=== PATIENT | female | born 1965 | race Caucasian/White ===

== ENCOUNTER 2016-05-19 16:03 | Emergency (ER) | payer OTHER ==
[2016-05-19 16:37] VITALS: BP 120/63
== END 2016-05-19 18:33 | disposition left against medical advice (07) ==
LOC: ER 16:03
DX: Z53.9 Procedure and treatment not carried out, unspecified reason (principal); R50.9 Fever, unspecified

== ENCOUNTER 2016-05-20 10:10 | Emergency (ER) | payer OTHER ==
--- NOTE | 2016-05-20 10:36 | ER Document Report ---
ED Medical Screen (RME) - General Stated Complaint: COLD SYMPTOMS Time seen by provider: 10:34 Mode of Arrival: Ambulatory Information source: Patient Notes: 50 yo female presents to ed for cough short of breath, HX of copd Had URi TRAVEL OUTSIDE OF THE [place] IN LAST 30 DAYS: No - HPI Onset: Last week Onset/Duration: Gradual Quality of pain: Pressure Severity: None Pain Level: Denies Associated Symptoms: Cough (productive), Fever - yesterda, Shortness of breath, Sinus pain/drainage Exacerbated by: Coughing Similar symptoms previously: Yes Recently seen / treated by doctor: No - Related Data Smoking: Cigarettes, Less than 1 pack/day - 1/2 Frequency of alcohol use: None Drug Abuse: None Allergies/Adverse Reactions: No Known Drug Allergies Allergy (Unknown, Verified 05/19/16 16:33) Past Medical History - Past Medical History Cardiac Medical History: Reports: Hx Hypercholesterolemia, Hx Hypertension Denies: Hx Congestive Heart Failure, Hx Heart Attack Pulmonary Medical History: Denies: Hx Tuberculosis Neurological Medical History: Denies: Hx Seizures Endocrine Medical History: Reports: Hx Diabetes Mellitus Type 2 GI Medical History: Reports: Hx Gastroesophageal Reflux Disease, Hx Hiatal Hernia Psychiatric Medical History: Reports: Hx Depression Past Surgical History: Reports: Hx Tubal Ligation. Denies: Hx Pacemaker - Immunizations Hx Diphtheria, Pertussis, Tetanus Vaccination: Yes Physical Exam - Vital signs Vitals: Temp Pulse Resp BP Pulse Ox 98.0 F 73 20 111/62 100 05/20/16 10:30 05/20/16 10:30 05/20/16 10:30 05/20/16 10:30 05/20/16 10:30 Course - Vital Signs Vital signs: Temp Pulse Resp BP Pulse Ox 98.0 F 73 20 111/62 100 05/20/16 10:30 05/20/16 10:30 05/20/16 10:30 05/20/16 10:30 05/20/16 10:30
[2016-05-20] MEDS ORDERED: IPRATROPIUM/ALBUTEROL 0.5-2.5 MG/3 ML AMPUL NEB ONE (12:37)
[2016-05-20] MEDS ORDERED: PREDNISONE 20 MG TABLET PO ONE (12:37)
--- NOTE | 2016-05-20 12:40 | ER Document Report ---
ED General - General Chief Complaint: Cough Stated Complaint: COLD SYMPTOMS Mode of Arrival: Ambulatory TRAVEL OUTSIDE OF THE [place] IN LAST 30 DAYS: No - HPI Patient complains to provider of: cough congestion Notes: Patient with cough congestion last 2 days. Patient states recently diagnosed with COPD approximately one year ago. Patient states she has been using her nebulizer of albuterol at home. Patient denies any sick contacts states that she did receive a flu shot this year. No recent travel no fevers chills nausea vomiting diarrhea chest pain abdominal pain. Patient states she does continue to smoke. Productive cough with clear initially now green sputum - Related Data Allergies/Adverse Reactions: No Known Drug Allergies Allergy (Unknown, Verified 05/19/16 16:33) Past Medical History - General Information source: Patient - Social History Smoking Status: Current Some Day Smoker Chew tobacco use (# tins/day): No Frequency of alcohol use: None Drug Abuse: None Family History: Reviewed & Not Pertinent Patient has suicidal ideation: No Patient has homicidal ideation: No - Past Medical History Cardiac Medical History: Reports: Hx Hypercholesterolemia, Hx Hypertension Denies: Hx Congestive Heart Failure, Hx Heart Attack Pulmonary Medical History: Denies: Hx Tuberculosis Neurological Medical History: Denies: Hx Seizures Endocrine Medical History: Reports: Hx Diabetes Mellitus Type 2 GI Medical History: Reports: Hx Gastroesophageal Reflux Disease, Hx Hiatal Hernia Psychiatric Medical History: Reports: Hx Depression Past Surgical History: Reports: Hx Tubal Ligation. Denies: Hx Pacemaker - Immunizations Hx Diphtheria, Pertussis, Tetanus Vaccination: Yes Hx Pneumococcal Vaccination: 01/07/12 Review of Systems - Review of Systems Constitutional: No symptoms reported EENT: Other Cardiovascular: No symptoms reported Respiratory: Cough Gastrointestinal: No symptoms reported Genitourinary: No symptoms reported Female Genitourinary: No symptoms reported Musculoskeletal: No symptoms reported Skin: No symptoms reported Hematologic/Lymphatic: No symptoms reported Neurological/Psychological: No symptoms reported Physical Exam - Vital signs Vitals: Temp Pulse Resp BP Pulse Ox 98.0 F 73 20 111/62 100 05/20/16 10:30 05/20/16 10:30 05/20/16 10:30 05/20/16 10:30 05/20/16 10:30 Interpretation: Normal - General General appearance: Appears well, Alert - HEENT Head: Normocephalic, Atraumatic Eyes: Normal Pupils: PERRL - Respiratory Respiratory status: No respiratory distress Chest status: Nontender Breath sounds: Normal Chest palpation: Normal - Cardiovascular Rhythm: Regular Heart sounds: Normal auscultation Murmur: No - Abdominal Inspection: Normal Distension: No distension Bowel sounds: Normal Tenderness: Nontender Organomegaly: No organomegaly - Back Back: Normal, Nontender - Extremities General upper extremity: Normal inspection, Nontender, Normal color, Normal ROM , Normal temperature General lower extremity: Normal inspection, Nontender, Normal color, Normal ROM , Normal temperature, Normal weight bearing. No: Carolyn's sign - Neurological Neuro grossly intact: Yes Cognition: Normal Orientation: AAOx4 Delfin Coma Scale Eye Opening: Spontaneous [place] Coma Scale Verbal: Oriented Delfin Coma Scale Motor: Obeys Commands Delfin Coma Scale Total: 15 Speech: Normal Motor strength normal: LUE, RUE, LLE, RLE Sensory: Normal - Psychological Associated symptoms: Normal affect, Normal mood - Skin Skin Temperature: Warm Skin Moisture: Dry Skin Color: Normal Course - Re-evaluation Re-evalutation: 05/20/16 16:05 Patient's examination is more consistent with bronchitis. Patient will be given albuterol steroids for 3 days that she is diabetic and started on Z-Mann due to the sputum change. Patient was encouraged to stop smoking. Patient will be discharged home. - Vital Signs Vital signs: Temp Pulse Resp BP Pulse Ox 97.2 F 89 17 118/62 96 05/20/16 13:08 05/20/16 13:08 05/20/16 13:08 05/20/16 13:08 05/20/16 13:08 Discharge - Discharge Clinical Impression: Bronchitis, Tobacco abuse Condition: Good Disposition: HOME, SELF-CARE Instructions: Bronchitis ([facility]), Chronic Obstructive Lung Disease ([facility]) Additional Instructions: Stop smoking Your symptoms today are consistent with bronchitis. It is important that she take your inhaler or nebulizer at home 1 treatment or 2 puffs every 4 hours for the next 5 days. We will start you on steroids. I will give you a dose of antibiotics Zithromax. Please make sure that you follow-up with your primary care physician. Prescriptions: Azithromycin [Zithromax 250 mg Tablet] 250 mg PO ASDIR PRN #6 tablet PRN Reason: Prednisone [Deltasone 20 mg Tablet] 2 tab PO DAILY 2 Days Forms: Smoking Cessation Education, Return to Work
[2016-05-20] MEDS ORDERED: AZITHROMYCIN 250 MG TABLET PO ONE (12:41)
[2016-05-20 13:12] VITALS: BP 118/62
== END 2016-05-20 13:08 | disposition home or self-care (01) ==
LOC: ER 10:10
DX: J44.9 Chronic obstructive pulmonary disease, unspecified (principal); F17.210 Nicotine dependence, cigarettes, uncomplicated; R05 Cough; I10 Essential (primary) hypertension; E11.9 Type 2 diabetes mellitus without complications; Z79.899 Other long term (current) drug therapy
CPT/HCPCS: 94640; 99283; 87804; 71020; J7512; J7620

== ENCOUNTER 2016-06-24 09:49 | Emergency (ER) | payer OTHER ==
[2016-06-24] MEDS ORDERED: KETOROLAC TROMETHAMINE 60 MG/2 ML SDV IM ONE (10:31)
--- NOTE | 2016-06-24 10:37 | ER Document Report ---
ED Respiratory Problem - General Chief Complaint: Congestion Stated Complaint: CONGESTION Mode of Arrival: Ambulatory Information source: Patient TRAVEL OUTSIDE OF THE [place] IN LAST 30 DAYS: No - HPI Patient complains to provider of: Cough, Hurts to breath Onset: Other - 3 days Quality of pain: Achy Severity: Mild Context: Hx COPD, Smoker. denies: DVT, Factor V Leiden, Malignancy, , Recent cardiac event, Recent foreign travel, Recent long distance trvl, Recent immobilization, Recent surgery Chest pain/discomfort: Worse with deep breaths Cough: Nonproductive. denies: Stridor Sputum amount: None Recently seen / treated by doctor: Yes - here 3 weeks ago Notes: Patient arrives with complaints of cough and chest pain with cough and deep breaths. Patient states that she was seen 3 weeks ago in the emergency department and was diagnosed with bronchitis, she was placed on antibiotics as well as steroids. She states that she felt better. On Tuesday she started to have a cough and pain in her chest and upper back with cough only. She denies any difficulty breathing. She denies any diaphoresis. She denies any leg pain or swelling. She denies any recent trips or surgeries, hormones, history of DVT or PE, cancer. She denies a history of CAD. She does have a history of COPD and continues to smoke. She denies any shortness of breath at this time. She states that yesterday she felt hot but did not actually take her temperature. - Related Data Allergies/Adverse Reactions: No Known Drug Allergies Allergy (Unknown, Verified 06/24/16 10:00) Past Medical History - General Information source: Patient - Social History Smoking Status: Never Smoker Chew tobacco use (# tins/day): No Frequency of alcohol use: None Drug Abuse: None Family History: Reviewed & Not Pertinent Patient has suicidal ideation: No Patient has homicidal ideation: No - Past Medical History Cardiac Medical History: Reports: Hx Hypercholesterolemia, Hx Hypertension Denies: Hx Congestive Heart Failure, Hx Heart Attack Pulmonary Medical History: Denies: Hx Tuberculosis Neurological Medical History: Denies: Hx Seizures Endocrine Medical History: Reports: Hx Diabetes Mellitus Type 2 Renal/ Medical History: Denies: Hx Peritoneal Dialysis GI Medical History: Reports: Hx Gastroesophageal Reflux Disease, Hx Hiatal Hernia Psychiatric Medical History: Reports: Hx Depression Past Surgical History: Reports: Hx Tubal Ligation. Denies: Hx Pacemaker - Immunizations Hx Diphtheria, Pertussis, Tetanus Vaccination: Yes Hx Pneumococcal Vaccination: 01/07/12 Review of Systems - Review of Systems -: Yes All other systems reviewed and negative Physical Exam - Vital signs Interpretation: Normal - General General appearance: Appears well, Alert In distress: None - HEENT Head: Normocephalic, Atraumatic Eyes: Normal Conjunctiva: Normal Pupils: PERRL Ears: Normal External canal: Normal Tympanic membrane: Normal Nasal: Normal Mouth/Lips: Normal Pharynx: Normal. No: Erythema, Exudate, Peritonsillar abscess Neck: Normal - Respiratory Respiratory status: No respiratory distress Chest status: Nontender Breath sounds: Normal. No: Rhonchi, Stridor, Wheezing Chest palpation: Normal - Cardiovascular Rhythm: Regular Heart sounds: Normal auscultation Murmur: No - Back Back: Normal, Nontender - Extremities General upper extremity: Normal inspection, Nontender, Normal color, Normal ROM , Normal temperature General lower extremity: Normal inspection, Nontender, Normal color, Normal ROM , Normal temperature, Normal weight bearing. No: Edema, Carolyn's sign - Neurological Neuro grossly intact: Yes Cognition: Normal Orientation: AAOx4 Delfin Coma Scale Eye Opening: Spontaneous Delfin Coma Scale Verbal: Oriented Delfin Coma Scale Motor: Obeys Commands Delfin Coma Scale Total: 15 Speech: Normal Motor strength normal: LUE, RUE, LLE, RLE Sensory: Normal - Psychological Associated symptoms: Normal affect, Normal mood - Skin Skin Temperature: Warm Skin Moisture: Dry Skin Color: Normal Course - Re-evaluation Re-evalutation: 06/24/16 11:28 The patient is nontoxic appearing with stable vitals. Patient had bronchitis 3 weeks ago and now has some chest pain and upper back pain with coughing and deep breath only. EKG is unremarkable her attending review. Chest x-ray clear. Patient has no PE risk factors. PE is very unlikely in this patient at this time. Patient likely has some pleurisy from her recent respiratory illness. I will discharge the patient home on NSAIDs. Follow up with her primary care doctor if not better in 4-5 days, sooner if getting worse. - Diagnostic Test Radiology reviewed: Reports reviewed - Negative chest - EKG Interpretation by Me EKG shows normal: Sinus rhythm, Intervals, QRS Complexes, ST-T Waves Rhythm: NSR When compared to previous EKG there are: No significant change Discharge - Discharge Clinical Impression: Cough, Chest pain made worse by breathing Condition: Stable Disposition: HOME, SELF-CARE Instructions: Pleurisy ([facility]), Stop Smoking ([facility]) Additional Instructions: Take medications as prescribed. Follow-up with your doctor in the next 4-5 days for recheck. Follow-up sooner for increased pain, fever, difficulty breathing, or any further concerns. Prescriptions: Diclofenac Sodium [Voltaren] 75 mg PO BID #20 tablet.dr Forms: Smoking Cessation Education, Return to Work
[2016-06-24 11:48] VITALS: BP 113/60
--- NOTE | 2016-06-24 13:19 | EKG REPORT ---
SEVERITY:- BORDERLINE ECG - SINUS RHYTHM LOW VOLTAGE IN FRONTAL LEADS BORDERLINE R WAVE PROGRESSION, ANTERIOR LEADS : Confirmed by: Bucky Solorio MD 24-Jun-2016 13:18:40
== END 2016-06-24 11:48 | disposition home or self-care (01) ==
LOC: ER 09:49
DX: R05 Cough (principal); R07.81 Pleurodynia; R06.02 Shortness of breath; J44.9 Chronic obstructive pulmonary disease, unspecified; F17.200 Nicotine dependence, unspecified, uncomplicated; E78.00 Pure hypercholesterolemia, unspecified; I10 Essential (primary) hypertension; K21.9 Gastro-esophageal reflux disease without esophagitis; E11.9 Type 2 diabetes mellitus without complications; Z98.51 Tubal ligation status
CPT/HCPCS: 93005; 99284; 96372; 71020; 93010; J1885

== ENCOUNTER 2016-12-04 16:28 | Emergency (ER) | payer OTHER ==
--- NOTE | 2016-12-04 17:16 | ER Document Report ---
ED Medical Screen (RME) - General Chief Complaint: Chest Pain Stated Complaint: CHEST PAIN Time Seen by Provider: 12/04/16 17:16 Mode of Arrival: Ambulatory Information source: Patient TRAVEL OUTSIDE OF THE [place] IN LAST 30 DAYS: No - HPI Onset: Last week Onset/Duration: Gradual, Waxing and waning Quality of pain: Fullness - "LIKE I SWALLOWED A GOLF BALL", Pressure Severity: Moderate Associated Symptoms: None, Shortness of breath - CHRONIC, NOT UNUSUAL Exacerbated by: Coughing, Deep breathing Relieved by: Other - HOLDING BREATH Similar symptoms previously: No Recently seen / treated by doctor: No - Related Data Smoking: Greater than 1 pack/day Frequency of alcohol use: Rare Drug Abuse: None Allergies/Adverse Reactions: No Known Drug Allergies Allergy (Unknown, Verified 06/24/16 10:00) Past Medical History - Social History Cigarette use (# per day): Yes Chew tobacco use (# tins/day): No Frequency of alcohol use: None Drug Abuse: None Lives with: Alone Family history: None - Past Medical History Cardiac Medical History: Reports: Hx Hypercholesterolemia, Hx Hypertension Denies: Hx Congestive Heart Failure, Hx Heart Attack Pulmonary Medical History: Reports: Hx COPD Denies: Hx Tuberculosis Neurological Medical History: Denies: Hx Seizures Endocrine Medical History: Reports: Hx Diabetes Mellitus Type 2 Renal/ Medical History: Denies: Hx Peritoneal Dialysis GI Medical History: Reports: Hx Gastroesophageal Reflux Disease, Hx Hiatal Hernia Psychiatric Medical History: Reports: Hx Depression Past Surgical History: Reports: Hx Tubal Ligation. Denies: Hx Pacemaker - Immunizations Hx Diphtheria, Pertussis, Tetanus Vaccination: Yes Review of Systems - Review of Systems Constitutional: Other - COLD INTOLERANCE. denies: Chills, Fever EENT: No symptoms reported Cardiovascular: No symptoms reported Respiratory: See HPI Gastrointestinal: No symptoms reported. denies: Diarrhea, Nausea, Vomiting Genitourinary: No symptoms reported Female Genitourinary: No symptoms reported Musculoskeletal: No symptoms reported Skin: No symptoms reported Hematologic/Lymphatic: No symptoms reported Neurological/Psychological: No symptoms reported Physical Exam - Vital signs Vitals: Temp Pulse Resp BP Pulse Ox 98.3 F 79 16 109/65 98 12/04/16 16:45 12/04/16 16:45 12/04/16 16:45 12/04/16 16:45 12/04/16 16:45 Interpretation: Normal - General General appearance: Appears well, Alert In distress: None - HEENT Head: Normocephalic Eyes: Normal Conjunctiva: Normal Ears: Normal Nasal: Normal Mouth/Lips: Normal Mucous membranes: Normal - Respiratory Respiratory status: No respiratory distress Chest status: Nontender Breath sounds: Normal - Cardiovascular Rhythm: Regular Heart sounds: Normal auscultation Murmur: No - Abdominal Inspection: Normal Distension: No distension Bowel sounds: Normal - Extremities General upper extremity: Normal inspection General lower extremity: Normal inspection - Neurological Neuro grossly intact: Yes Cognition: Normal Orientation: AAOx4 - Psychological Associated symptoms: Normal affect, Normal mood - Skin Skin Temperature: Warm Skin Moisture: Dry Skin Color: Normal Skin Turgor: Elastic Course - Vital Signs Vital signs: Temp Pulse Resp BP Pulse Ox 98.3 F 79 16 109/65 98 12/04/16 16:45 12/04/16 16:45 12/04/16 16:45 12/04/16 16:45 12/04/16 16:45
[2016-12-04 17:56] LABS: ABSOLUTE BASOPHILS # (AUTO) 0.1 10^3/uL (0.0-0.2); ABSOLUTE EOSINOPHILS # (AUTO) 0.2 10^3/uL (0.0-0.6); ABSOLUTE LYMPHOCYTES (AUTO) 2.5 10^3/uL (0.5-4.7); ABSOLUTE MONOCYTES (AUTO) 0.5 10^3/uL (0.1-1.4); ABSOLUTE NEUT (AUTO) 4.7 10^3/uL (1.7-8.2); BASOPHILS % (AUTO) 0.8 % (0-2); EOSINOPHILS % (AUTO) 2.5 % (0-6); HEMATOCRIT 41.7 % (36.0-47.0); HEMOGLOBIN 14.6 g/dL (12.0-15.5); HGB HCT DIFFERENCE 2.1; LYMPHOCYTES % (AUTO) 31.5 % (13-45); MEAN CORPUSCULAR HEMOGLOBIN 35.7 pg (27.0-33.4); MEAN CORPUSCULAR HGB CONC 35.1 g/dL (32.0-36.0); MEAN CORPUSCULAR VOLUME 102 fl (80-97); MONOCYTES % (AUTO) 6.6 % (3-13); RED BLOOD COUNT 4.09 10^6/uL (3.72-5.28); RED CELL DISTRIBUTION WIDTH 15.1 % (11.5-14.0); SEGMENTED NEUTROPHILS % (AUTO) 58.6 % (42-78)
--- NOTE | 2016-12-04 18:08 | RADIOLOGY REPORT (SQ) ---
EXAM DESCRIPTION: CHEST PA/LAT COMPLETED DATE/TIME: 12/04/2016 5:53 pm REASON FOR STUDY: CHEST PAIN COMPARISON: 06/24/2016 and 04/12/2014 EXAM PARAMETERS: NUMBER OF VIEWS: two views TECHNIQUE: Digital Frontal and Lateral radiographic views of the chest acquired. RADIATION DOSE: NA LIMITATIONS: none FINDINGS: LUNGS AND PLEURA: An ovoid hyperdensity localizing to the right middle lobe appears stabl e, and likely represents a calcified granuloma. No new focal opacities, masses or pneumothorax. No p leural effusion. MEDIASTINUM AND HILAR STRUCTURES: No masses or contour abnormalities. HEART AND VASCULAR STRUCTURES: Heart normal size. No evidence for failure. BONES: No acute findings. HARDWARE: None in the chest. OTHER: No other significant finding. IMPRESSION: NO SIGNIFICANT RADIOGRAPHIC FINDING IN THE CHEST. TECHNICAL DOCUMENTATION: JOB ID: [id number] [email or web address]- All Rights Reserved
[2016-12-04 18:13] LABS: ALANINE AMINOTRANSFERASE 21 U/L (9-52); ALBUMIN 3.6 g/dL (3.5-5.0); ALKALINE PHOSPHATASE 102 U/L (38-126); ANION GAP 9 (5-19); ASPARTATE AMINO TRANSFERASE 14 U/L (14-36); BILIRUBIN,DIRECT 0.4 mg/dL (0.0-0.4); BILIRUBIN,TOTAL 0.4 mg/dL (0.2-1.3); BLOOD UREA NITROGEN 18 mg/dL (7-20); CALCIUM 9.1 mg/dL (8.4-10.2); CARBON DIOXIDE 23 mmol/L (22-30); CHLORIDE 105 mmol/L (98-107); CREATINE KINASE 44 U/L (30-135); CREATININE RESULT 0.89 mg/dL (0.52-1.25); GLUCOSE 215 mg/dL (75-110); POTASSIUM 4.7 mmol/L (3.6-5.0); SODIUM 136.5 mmol/L (137-145); TOTAL PROTEIN 6.8 g/dL (6.3-8.2)
--- NOTE | 2016-12-04 18:21 | ER Document Report ---
ED General - General Mode of Arrival: Ambulatory Information source: Patient TRAVEL OUTSIDE OF THE [place] IN LAST 30 DAYS: No - HPI Onset: Other - Refer to HPI notes <ORESTES ZARATE - Last Filed: 12/04/16 18:00> <CONOR TRINIDAD - Last Filed: 12/05/16 22:55> - General Chief Complaint: Chest Pain Stated Complaint: CHEST PAIN Time Seen by Provider: 12/04/16 17:16 Notes: Patient is a 51 year old female presenting to the ED for chest/back pain and increased cough. Patient's symptoms have been onset x1 week. Patient is having a COPD exacerbation. Patient states she feels like she swallowed a "golf ball." Patient also complains of a dry cough that is chronic from her COPD. Patient's cough exacerbates her throat/chest pain. Patient is a current everyday smoker and smokes about 1/2 a pack per day. Patient has been intubated in the past for EtOH overdose, hyperglycemia, and pneumonia. Patient denies any PE. Patient has no known drug allergies. Patient also states she is off balance and is afraid to get up because she is going to fall. Patient states she gets dizzy spells off and on. Patient states this dizziness has happened to her about 4 times in the past month. Patient gets up from the bed and immediately says she cannot walk and feels dizzy and weak and quickly sits back down on the bed. (ORESTES ZARATE) - Related Data Allergies/Adverse Reactions: No Known Drug Allergies Allergy (Unknown, Verified 06/24/16 10:00) Past Medical History - General Information source: Patient - Social History Smoking Status: Current Every Day Smoker Cigarette use (# per day): Yes - 1/2 ppd Chew tobacco use (# tins/day): No Frequency of alcohol use: None Drug Abuse: None Lives with: Alone Family History: None Patient has suicidal ideation: No Patient has homicidal ideation: No - Past Medical History Cardiac Medical History: Reports: Hx Hypercholesterolemia, Hx Hypertension Pulmonary Medical History: Reports: Hx COPD Endocrine Medical History: Reports: Hx Diabetes Mellitus Type 2 GI Medical History: Reports: Hx Gastroesophageal Reflux Disease, Hx Hiatal Hernia Psychiatric Medical History: Reports: Hx Depression Past Surgical History: Reports: Hx Tubal Ligation - Immunizations Hx Diphtheria, Pertussis, Tetanus Vaccination: Yes Hx Pneumococcal Vaccination: 01/07/12 <ORESTES ZARATE - Last Filed: 12/04/16 18:00> Review of Systems - Review of Systems Constitutional: No symptoms reported EENT: No symptoms reported Cardiovascular: No symptoms reported Respiratory: No symptoms reported Gastrointestinal: No symptoms reported Genitourinary: No symptoms reported Female Genitourinary: No symptoms reported Musculoskeletal: No symptoms reported Skin: No symptoms reported Hematologic/Lymphatic: No symptoms reported Neurological/Psychological: No symptoms reported -: Yes All other systems reviewed and negative <ORESTES ZARATE - Last Filed: 12/04/16 18:00> Physical Exam <ORESTES ZARATE - Last Filed: 12/04/16 18:00> <CONOR TRINIDAD - Last Filed: 12/05/16 22:55> - Vital signs Vitals: Temp Pulse Resp BP Pulse Ox 98.3 F 79 16 109/65 98 12/04/16 16:45 12/04/16 16:45 12/04/16 16:45 12/04/16 16:45 12/04/16 16:45 - Notes Notes: GENERAL: Alert, interacts well. No acute distress. HEAD: Normocephalic, atraumatic. EYES: Appear normal. Pupils equal, round, and reactive to light. ENT: Moist mucus membranes, tongue midline. NECK: Full range of motion. Supple. Trachea midline. LUNGS: Clear to auscultation bilaterally, no wheezes, rales, or rhonchi. No respiratory distress. HEART: Regular rate and rhythm. No murmurs, gallops, or rubs. ABDOMEN: Soft, non-tender. Non-distended. Normal bowel sounds. EXTREMITIES: Moves all 4 extremities spontaneously. Normal strength. No edema. NEUROLOGICAL: Alert and oriented x3. Normal speech. No focal neurological deficits. GSC 15. PSYCH: Normal affect, normal mood. SKIN: Warm, dry, normal turgor. No rashes or lesions noted. (ORESTES ZARATE) Course - Laboratory Result Diagrams: 12/04/16 17:45 12/04/16 17:45 <ORESTES ZARATE - Last Filed: 12/04/16 18:00> - Laboratory Result Diagrams: 12/04/16 17:45 12/04/16 17:45 <CONOR TRINIDAD - Last Filed: 12/05/16 22:55> - Re-evaluation Re-evalutation: 12/04/16 19:07 Orthopedic department with chief complaint of increased cough hurts when she coughs and difficulty breathing for a week. She has COPD and smokes. She said she does not want to drive to her family doctor so has not seen them in quite some time but is not out of her diabetic medication. She is well-appearing nontoxic not tachypneic tachycardic or hypoxic. Chest x-ray ordered out thought is negative. Patient denies any heaviness exertional component history of DVT or pulmonary emboli. Explained to the patient and give her breathing treatments and some steroids and discharge her and she said all of a sudden she felt dizzy and she could not walk. This came out of nowhere in the middle of the conversation she walked back here on her own she walked to the restroom on her own without any difficulty and refused to get up and walk. She has no strokelike symptoms or neurological deficits she said this been going on for 4 months and when she gets stressed out it will come out of nowhere. At this point I am going to CT her head for conclusive sake that she has a GCS of 15 normal neurological status. 12/04/16 20:18 Ambulatory at the bedside underwent CT of the head which is negative for acute pathology. Will DC on albuterol stop smoking prednisone follow primary care physician to 3 days and discussed reasons for ED return sooner (CONOR TRINIDAD) - Vital Signs Vital signs: Temp Pulse Resp BP Pulse Ox 98.6 F 79 12 109/54 L 95 12/04/16 21:06 12/04/16 16:45 12/04/16 21:01 12/04/16 21:00 12/04/16 21:01 - Laboratory Laboratory results interpreted by me: 12/04/16 12/04/16 12/04/16 17:45 17:45 20:11 MCV 102 H MCH 35.7 H RDW 15.1 H Sodium 136.5 L Glucose 215 H Urine Glucose (UA) >=500 H Urine Ketones TRACE H - EKG Interpretation by Me Additional EKG results interpreted by me: 12/04/16 20:23 EKG interpreted by myself to reveal sinus rhythm at [address] segment elevation or depression (CONOR TRINIDAD) Discharge <ORESTES ZARATE - Last Filed: 12/04/16 18:00> <CONOR TRINIDAD - Last Filed: 12/05/16 22:55> - Discharge Clinical Impression: copd exacerbation, dizziness, tobacco abuse Condition: Stable Disposition: HOME, SELF-CARE Additional Instructions: Dizziness Under normal circumstances, your sense of balance is controlled by a number of signals that your brain receives from several locations: Eyes. No matter what your position, visual signals help you determine where your body is in space and how it's moving. Sensory nerves. These are in your skin, muscles and joints. Sensory nerves send messages to your brain about body movements and positions. Inner ear. The organ of balance in your inner ear is the vestibular labyrinth. It includes loop-shaped structures (semicircular canals) that contain fluid and fine, hair-like sensors that monitor the rotation of your head. Near the semicircular canals are the utricle and saccule, which contain tiny particles called otoconia ([id number]). These particles are attached to sensors that help detect gravity and [id number] motion. Good balance depends on at least two of these three sensory systems working well. For instance, closing your eyes while washing your hair in the shower doesn't mean you'll lose your balance. Signals from your inner ear and sensory nerves help keep you upright. However, if your central nervous system can't process signals from all of these locations, if the messages are contradictory, or if the sensory systems aren't functioning properly, you may experience loss of balance. Dizziness may have a number of potential causes. These may include: Vertigo Vertigo - the false sense of motion or spinning - is the most common symptom of dizziness. Sitting up or moving around may make it worse. Sometimes vertigo is severe enough to cause nausea and vomiting. Vertigo usually results from a problem with the nerves and the structures of the balance mechanism in your inner ear (vestibular system), which sense movement and changes in your head position. Abnormal rhythmic eye movements ( nystagmus) almost always accompany vertigo. Causes of vertigo may include: Benign paroxysmal positional vertigo (BPPV). BPPV involves intense, brief episodes of vertigo associated with a change in the position of your head, often when you turn over in bed or sit up in the morning. It occurs when normal calcium carbonate crystals (otoconia) break loose and fall into the wrong part of the canals in your inner ear. When these particles shift, they stimulate sensors in your ear, producing an episode of vertigo. Doctors don't know what causes BPPV, but it may be a natural result of aging. Trauma to your head also may lead to BPPV. Inflammation in the inner ear. Signs and symptoms of inflammation of the inner ear (acute vestibular neuronitis or labyrinthitis) include sudden, intense vertigo that may persist for several days, with nausea and vomiting. It can be incapacitating, requiring bed rest to minimize the signs and symptoms. Fortunately, vestibular neuronitis generally subsides and clears up on its own. Recovery time may be shorter with vestibular rehabilitation exercises. Although the cause of this condition is unknown, it may be a viral infection. Meniere's disease. This disease involves the excessive buildup of fluid in your inner ear. It may affect adults at any age and is characterized by sudden episodes of vertigo lasting 30 minutes to an hour or longer. Other signs and symptoms include the feeling of fullness in your ear, buzzing or ringing in your ear (tinnitus), and fluctuating hearing loss. The cause of Meniere's disease is unknown. Vestibular migraine. People who experience a vestibular migraine are very sensitive to motion. Dizziness and vertigo caused by a vestibular migraine may be triggered by turning your head quickly, being in a crowded or confusing place , driving or riding in a vehicle, or even watching movement on TV. A vestibular migraine may cause feelings of imbalance or unsteadiness, hearing loss, "muffled " hearing, or ringing in your ears (tinnitus). For most people with a vestibular migraine, vertigo doesn't necessarily happen at the same time as the headache. Instead, typical migraine triggers may lead to vertigo without an actual migraine. Attacks of migrainous vertigo can last from a few minutes to several days. Acoustic neuroma. An acoustic neuroma (schwannoma) is a noncancerous (benign ) growth on the acoustic nerve, which connects the inner ear to your brain. Signs and symptoms of an acoustic neuroma may include dizziness, loss of balance , hearing loss and tinnitus. Rapid changes in motion. Riding on roller coasters or in boats, cars or even airplanes may on occasion make you dizzy. Other causes. Rarely, vertigo can be a symptom of a more serious neurological problem such as a stroke, brain hemorrhage or multiple sclerosis. Feeling of faintness (presyncope) "Presyncope" is the medical term for feeling faint and lightheaded without losing consciousness. Sometimes nausea, pale skin and a sense of dizziness accompany a feeling of faintness. Causes of presyncope include: Drop in blood pressure (orthostatic hypotension). A dramatic drop in your systolic blood pressure - the higher number in your blood pressure reading - may result in lightheadedness or a feeling of faintness. It can occur after sitting up or standing too quickly. Inadequate output of blood from the heart. Conditions such as partially blocked arteries (atherosclerosis), disease of the heart muscle (cardiomyopathy) , abnormal heart rhythm (arrhythmia) or a decrease in blood volume may cause inadequate blood flow from your heart. Loss of balance (disequilibrium) Disequilibrium is the loss of balance or the feeling of unsteadiness when you walk. Causes may include: Inner ear (vestibular) problems. Abnormalities with your inner ear can cause you to feel like you are floating, have a heavy head or are unsteady in the dark. Sensory disorders. Failing vision and nerve damage in your legs (peripheral neuropathy) are common in older adultsand may result in difficulty maintaining your balance. Joint and muscle problems. Muscle weakness and osteoarthritis - the type of arthritis that involves wear and tear of your joints - can contribute to loss of balance when it involves your weight-bearing joints. Medications. Loss of balance can be a side effect of certain medications, such as anti-seizure drugs, sedatives and tranquilizers. Lightheadedness and other kinds of 'dizziness' Feeling lightheaded is the feeling of being "spaced out" or having the sensation of spinning inside your head. It can also give you the sensation that if your lightheadedness worsens, you might lose consciousness. Causes may include: Inner ear disorders. These abnormalities of your inner ear can lead to illusions of motion and make you feel like you're floating. Anxiety disorders. Certain anxiety disorders, such as panic attacks and a fear of leaving home or being in large, open spaces (agoraphobia), may cause lightheadedness. Hyperventilation. Abnormally rapid breathing that often accompanies anxiety disorders may make you feel lightheaded. Chronic Obstructive Lung Disease You have chronic obstructive lung disease (COPD). The symptoms come from emphysema (damage to small airways, with trapping of air in large sacks in the lung) and chronic bronchitis (repeated infection and damage to larger airways). The cause is almost always cigarette smoking, although dust exposure, asthma, and infections contribute. You should avoid fumes, dust, and smoke (especially tobacco smoke). Your condition will flare from time to time. There is no cure, but the symptoms can be treated. Bronchodilators (asthma medicine) are often helpful. Antibiotics help when infection is present. When shortness of breath is severe, we may prescribe cortisone medication. If medicine doesn't help enough, we can arrange for you to have an oxygen tank at home. Notify your doctor at once if sputum becomes thick, foul, or bloody, if you develop a fever or chest pain, or if your shortness of breath worsens. follow Up with your primary care physician in 2-3 days return for increasing worsening or new symptom Prescriptions: Albuterol Sulfate [Proair HFA Inhalation Aerosol 8.5 gm MDI] 2 puff IH Q4H PRN # 1 mdi PRN Reason: Prednisone [Deltasone 20 mg Tablet] 3 tab PO DAILY 5 Days Scribe Attestation: 12/04/16 20:21 I personally performed the services described in the documentation reviewed the documentation recorded by my scribe in my presence and it accurately and completely records my words and actions (CONOR TRINIDAD) Scribe Documentation - Scribe Written by Maximiliano:: Maximiliano Nugent 12/04/16 19:00 acting as scribe for :: Liu <ORESTES ZARATE - Last Filed: 12/04/16 18:00>
[2016-12-04 18:23] LABS: CREATINE KINASE MB 0.87 ng/mL (<4.55)
[2016-12-04 18:24] LABS: TROPONIN I < 0.012 ng/mL
--- NOTE | 2016-12-04 20:15 | RADIOLOGY REPORT (SQ) ---
EXAM DESCRIPTION: CT HEAD WITHOUT COMPLETED DATE/TIME: 12/04/2016 7:23 pm REASON FOR STUDY: dizziness COMPARISON: None. TECHNIQUE: Axial images acquired through the brain without intravenous contrast. Images reviewed wi th bone, brain and subdural windows. Images stored on PACS. All CT scanners at this facility use dose modulation, iterative reconstruction, and/or weight based d osing when appropriate to reduce radiation dose to as low as reasonably achievable (ALARA). [facility]: Dose Right [facility]: CareDose [facility]: Dose Right [facility]: Teradose 4D [facility]: Gopeers RADIATION DOSE: Up-to-date CT equipment and radiation dose reduction techniques were employed. CTDIv ol: 64.6 mGy. DLP: 1163 mGy-cm. mGy. LIMITATIONS: None. FINDINGS: VENTRICLES: Normal size and contour. CEREBRUM: No masses. No hemorrhage. No midline shift. Normal paul/white matter differentiation. N o evidence for acute infarction. CEREBELLUM: No masses. No hemorrhage. No alteration of density. No evidence for acute infarction. EXTRAAXIAL SPACES: No fluid collections. No masses. ORBITS AND GLOBE: No intra- or extraconal masses. Normal contour of globe without masses. CALVARIUM: No fracture. PARANASAL SINUSES: No fluid or mucosal thickening. SOFT TISSUES: No mass or hematoma. OTHER: No other significant finding. IMPRESSION: NORMAL BRAIN CT WITHOUT CONTRAST. TECHNICAL DOCUMENTATION: JOB ID: [id number] Quality ID # [id number]: Final reports with documentation of one or more dose reduction techniques (e.g., Au tomated exposure control, adjustment of the mA and/or kV according to patient size, use of iterative reconstruction technique) 2010 [employer]- All Rights Reserved
[2016-12-04 20:50] LABS: APPEARANCE,URINE CLOUDY; BILIRUBIN,URINE NEGATIVE (NEGATIVE); GLUCOSE, URINE >=500 mg/dL (NEGATIVE); KETONES,URINE TRACE mg/dL (NEGATIVE); LEUKOCYTE ESTERASE,URINE NEGATIVE (NEGATIVE); NITRITE,URINE NEGATIVE (NEGATIVE); PROTEIN,URINE NEGATIVE (NEGATIVE); URINE SPECIFIC GRAVITY 1.018; UROBILINOGEN,URINE NEGATIVE mg/dL (<2.0)
[2016-12-04 21:06] VITALS: BP 109/54
--- NOTE | 2016-12-05 13:05 | EKG REPORT ---
SEVERITY:- BORDERLINE ECG - SINUS RHYTHM LOW VOLTAGE THROUGHOUT : Confirmed by: Dot Yeh MD 05-Dec-2016 13:05:26
== END 2016-12-04 22:03 | disposition home or self-care (01) ==
LOC: ER 16:28
DX: J44.1 Chronic obstructive pulmonary disease with (acute) exacerbation (principal); R42 Dizziness and giddiness; F17.210 Nicotine dependence, cigarettes, uncomplicated; R07.9 Chest pain, unspecified; M54.9 Dorsalgia, unspecified; R05 Cough; I10 Essential (primary) hypertension; E11.9 Type 2 diabetes mellitus without complications; Z87.01 Personal history of pneumonia (recurrent); Z79.899 Other long term (current) drug therapy
CPT/HCPCS: 36415; 70450; 71020; 80053; 81001; 82550; 82553; 84484; 85025; 93005; 93010; 99285

== ENCOUNTER 2017-01-08 16:25 | Emergency (ER) | payer OTHER ==
--- NOTE | 2017-01-08 17:13 | ER Document Report ---
ED Skin Rash/Insect Bite/Abscs - General Chief Complaint: Rash Stated Complaint: RASH, REDNESS ON LEFT HAND Time Seen by Provider: 01/08/17 16:56 Mode of Arrival: Ambulatory Information source: Patient TRAVEL OUTSIDE OF THE [place] IN LAST 30 DAYS: No - HPI Patient complains to provider of: Skin rash/lesion Onset: Yesterday Quality of pain: No pain Severity: Mild Skin Character: Erythema, Petechial. No: Abscess, Blanching, Tenderness Skin Temperature: Warm Exacerbated by: Denies Relieved by: Denies Notes: Patient arrives with complaints of rash to the bilateral hands and arms for the last day. She denies any injury. She denies any pain or itching to the rash. She has had no fevers. She denies rash anywhere else. She takes aspirin daily , but denies any other blood thinning medications. She has has no abdominal pain. She states she vomited once yesterday. She is having normal urine output. No headache, blurred vision, numbness tingling or weakness. No chest pain or shortness of breath. She denies any other complaints at this moment. - Related Data Allergies/Adverse Reactions: No Known Drug Allergies Allergy (Unknown, Verified 01/08/17 16:37) Past Medical History - Social History Smoking Status: Unknown if Ever Smoked Family History: None - Past Medical History Cardiac Medical History: Reports: Hx Hypercholesterolemia, Hx Hypertension Denies: Hx Congestive Heart Failure, Hx Heart Attack Pulmonary Medical History: Reports: Hx COPD Denies: Hx Tuberculosis Neurological Medical History: Denies: Hx Seizures Endocrine Medical History: Reports: Hx Diabetes Mellitus Type 2 Renal/ Medical History: Denies: Hx Peritoneal Dialysis GI Medical History: Reports: Hx Gastroesophageal Reflux Disease, Hx Hiatal Hernia Psychiatric Medical History: Reports: Hx Depression Past Surgical History: Reports: Hx Tubal Ligation. Denies: Hx Pacemaker - Immunizations Hx Diphtheria, Pertussis, Tetanus Vaccination: Yes Hx Pneumococcal Vaccination: 01/07/12 Review of Systems - Review of Systems -: Yes All other systems reviewed and negative Physical Exam - Vital signs Vitals: Temp Pulse Resp BP Pulse Ox 97.6 F 80 16 118/62 97 01/08/17 16:37 01/08/17 16:37 01/08/17 16:37 01/08/17 16:37 01/08/17 16:37 - Notes Notes: GENERAL: alert, cooperative, nontoxic, no distress. HEAD: normocephalic, atraumatic EYES: conjunctiva pink without discharge, no external redness or swelling. EARS: no external swelling, no external redness NOSE: atraumatic, no external swelling MOUTH/THROAT: mucous membranes moist and pink, posterior pharynx without erythema, swelling, exudate. No trismus or drooling. No sloughing of the mucous membranes. NECK: soft, supple, full range of motion, no meningismus. CHEST: no distress, lungs clear and equal throughout. No wheezing, rales, rhonchi. CARDIAC: regular rate and rhythm, no murmur, normal capillary refill, normal pulses. No peripheral edema noted. ABDOMEN: Soft, nontender. BACK: full range of motion, no CVA tenderness. EXTREMITIES: full range of motion of all extremities. No redness, no swelling. NEURO: alert and oriented x 3, no focal deficits, full range of motion of all extremities. PYSCH: appropriate mood, affect. Patient is cooperative. SKIN: pink, warm, dry, petechiae to the dorsum of both hands partially up the forearms and a streak of petechiae to the bilateral upper arms. No purpura. No vesicles. There is no petechiae or rash to the remainder of the body. Nothing to the palms of the hands. Course - Re-evaluation Re-evalutation: 01/08/17 18:21 Patient is nontoxic appearing with stable vitals. The patient has a petechial rash to her hands wrists and forearms of the both arms for the last day. No known injury. She has had absolutely no fevers. No sign of Anthon spotted fever. She is on no blood thinners. The rash does not hurt. She denies any other systemic symptoms. Her exam is otherwise benign. Lab evaluation shows normal platelet count and normal coags. No elevated white blood cell count. Patient has a nonspecific petechial rash possible that this could be a nonspecific vasculitis. This point the patient will be discharged home with instructions to follow-up with her primary care doctor at the next available appointment. She should return to the emergency department immediately for worsening rash. High fever. Severe headache. Will for any further concerns. - Vital Signs Vital signs: Temp Pulse Resp BP Pulse Ox 97.6 F 80 16 118/62 97 08/26/17 16:37 01/08/17 16:37 01/08/17 16:37 01/08/17 16:37 01/08/17 16:37 - Laboratory Result Diagrams: 01/08/17 17:30 01/08/17 17:30 Laboratory results interpreted by me: 01/08/17 01/08/17 17:30 17:30 MCV 101 H MCH 34.2 H RDW 15.3 H Glucose 232 H Discharge - Discharge Clinical Impression: Petechial rash Condition: Stable Disposition: HOME, SELF-CARE Instructions: Vasculitis ([facility]) Additional Instructions: Follow-up with your doctor in the next 48 hours for recheck. Return to the emergency department immediately for high fever, persistent vomiting, severe headache, worsening rash, or any further concerns.
[2017-01-08 17:51] LABS: ABSOLUTE BASOPHILS # (AUTO) 0.1 10^3/uL (0.0-0.2); ABSOLUTE EOSINOPHILS # (AUTO) 0.1 10^3/uL (0.0-0.6); ABSOLUTE LYMPHOCYTES (AUTO) 2.2 10^3/uL (0.5-4.7); ABSOLUTE MONOCYTES (AUTO) 0.5 10^3/uL (0.1-1.4); ABSOLUTE NEUT (AUTO) 5.3 10^3/uL (1.7-8.2); BASOPHILS % (AUTO) 1.1 % (0-2); EOSINOPHILS % (AUTO) 1.3 % (0-6); HEMATOCRIT 44.3 % (36.0-47.0); HGB HCT DIFFERENCE 0.7; LYMPHOCYTES % (AUTO) 27.1 % (13-45); MEAN CORPUSCULAR HEMOGLOBIN 34.2 pg (27.0-33.4); MEAN CORPUSCULAR VOLUME 101 fl (80-97); MONOCYTES % (AUTO) 6.2 % (3-13); RED CELL DISTRIBUTION WIDTH 15.3 % (11.5-14.0); SEGMENTED NEUTROPHILS % (AUTO) 64.3 % (42-78); WHITE BLOOD COUNT 8.2 10^3/uL (4.0-10.5)
[2017-01-08 17:57] LABS: PROTHROMBIN TIME 11.8 SEC (11.4-15.4)
[2017-01-08 17:58] LABS: PARTIAL THROMBOPLASTIN TIME 23.5 SEC (23.5-35.8)
[2017-01-08 18:13] LABS: ALANINE AMINOTRANSFERASE 25 U/L (9-52); ALBUMIN 4.1 g/dL (3.5-5.0); ALKALINE PHOSPHATASE 104 U/L (38-126); ANION GAP 12 (5-19); ASPARTATE AMINO TRANSFERASE 16 U/L (14-36); BILIRUBIN,DIRECT 0.4 mg/dL (0.0-0.4); BILIRUBIN,TOTAL 0.4 mg/dL (0.2-1.3); BLOOD UREA NITROGEN 18 mg/dL (7-20); CALCIUM 9.7 mg/dL (8.4-10.2); CARBON DIOXIDE 24 mmol/L (22-30); CHLORIDE 105 mmol/L (98-107); CREATININE RESULT 0.92 mg/dL (0.52-1.25); GLUCOSE 232 mg/dL (75-110); POTASSIUM 4.9 mmol/L (3.6-5.0); SODIUM 141.2 mmol/L (137-145); TOTAL PROTEIN 7.2 g/dL (6.3-8.2)
[2017-01-08 18:49] VITALS: BP 105/61
== END 2017-01-08 18:49 | disposition home or self-care (01) ==
LOC: ER 16:25
DX: R23.3 Spontaneous ecchymoses (principal); R21 Rash and other nonspecific skin eruption
CPT/HCPCS: 36415; 80053; 85025; 85610; 85730; 99283

== ENCOUNTER 2017-06-23 21:50 | Emergency (ER) | payer OTHER ==
--- NOTE | 2017-06-24 00:40 | ER Document Report ---
HPI - HPI Pain Level: 3 Notes: Patient is a 51-year-old female with a history of type 2 diabetes, hypertension , COPD who presents to the ED complaining of dry nonproductive cough over the last 4-5 days and elevations in her blood glucose on Accu-Chek. Patient states that she is in the household that has mold and has been getting intermittent cough over the last several months. Patient states that the cough is considered mild. Patient has not had use her inhaler often. She is still eating and drinking without any difficulties. She is urinating normally and having normal bowel movements. Patient states that her symptoms are not worsened by ambulation. Patient states that her sugars have been running in the 300s over the last couple days, and she ran out of her diabetic medication which she needs a refill of. Patient states that she has intermittent issues with lower extremity edema bilaterally and when she is on her feet too long her ankle swell and causes some pain in her feet. Patient states that the swelling is improved when she has her legs elevated and is resting. Patient is currently not on any fluid pill. Patient does admit to having a flu shot this year. She denies any drug allergies. Denies any headache, fever, neck pain, changes in vision/speech/mentation/hearing, URI, sore throat, chest pain, palpitations, syncope, shortness of breath, wheeze, dyspnea, abdominal pain, nausea/vomiting/diarrhea, urinary retention, dysuria, hematuria, loss of control of bowel or bladder, numbness/tingling, muscle paralysis/weakness, or rash. - ROS Systems Reviewed and Negative: Yes All other systems reviewed and negative - REPRODUCTIVE Reproductive: DENIES: : Past Medical History - Social History Smoking Status: Former Smoker Family History: None - Past Medical History Cardiac Medical History: Reports: Hx Hypercholesterolemia, Hx Hypertension Denies: Hx Congestive Heart Failure, Hx Heart Attack Pulmonary Medical History: Reports: Hx COPD Denies: Hx Tuberculosis Neurological Medical History: Denies: Hx Seizures Endocrine Medical History: Reports: Hx Diabetes Mellitus Type 2 Renal/ Medical History: Denies: Hx Peritoneal Dialysis GI Medical History: Reports: Hx Gastroesophageal Reflux Disease, Hx Hiatal Hernia Psychiatric Medical History: Reports: Hx Depression Past Surgical History: Reports: Hx Tubal Ligation. Denies: Hx Pacemaker - Immunizations Hx Diphtheria, Pertussis, Tetanus Vaccination: Yes Hx Pneumococcal Vaccination: 01/07/12 Vertical Provider Document - CONSTITUTIONAL Agree With Documented VS: Yes Notes: PHYSICAL EXAMINATION: GENERAL: Well-appearing, well-nourished and in no acute distress. A&Ox4. Answers questions appropriately. Moves comfortably w/o notable distress HEAD: Atraumatic, normocephalic. EYES: Pupils equal round and reactive to light, extraocular movements intact, sclera anicteric, conjunctiva are normal. ENT: EAC clear b/l. TM's intact b/l without erythema, fluid, or perforation. Nares patent and without discharge. oropharynx no erythema without exudates. No tonsilar hypertrophy without erythema or exudate. No palatine shift. Uvula midline. No tongue protrusion. No drooling, hoarseness, or airway compromise. Moist mucous membranes. No sinus tenderness. NECK: Normal range of motion, supple without lymphadenopathy. No rigidity/ meningismus. LUNGS: Breath sounds clear to auscultation bilaterally and equal. No wheezes rales or rhonchi. No retractions HEART: Regular rate and rhythm without murmurs, rubs, gallops. ABDOMEN: Soft, nontender, nondistended abdomen. No guarding, no rebound. No masses appreciated. Normal bowel sounds present. No CVA tenderness bilaterally. Ext: 1+ pitting edema b/l. Carolyn neg b/l. No calf erythema, tenderness, or swelling. NEUROLOGICAL: Normal speech, normal gait. Normal sensory, motor exams PSYCH: Normal mood, normal affect. SKIN: Warm, Dry, normal turgor, no rashes or lesions noted. - INFECTION CONTROL TRAVEL OUTSIDE OF THE [place] IN LAST 30 DAYS: No - RESPIRATORY O2 Sat by Pulse Oximetry: 100 Course - Re-evaluation Re-evalutation: 06/24/17 00:38 Patient is an afebrile, well-hydrated, 51-year-old female who presents to the ED with a cough, suspect viral, low suspicion for influenza as well as elevated glucose in a known diabetic. Vitals are stable. PE is otherwise unremarkable. Patient's last Accu-Chek was 251. Patient is tolerating p.o. without any difficulties. Patient needs a refill of xigduo which I will refill for her. Patient states that her sugars have been elevated since she ran out of medication the other day. No other labs or imaging is warranted at this time based on H&P. Patient is not tachycardic, not tachypneic, and oxygen saturation of 99% on room air. She has no labored breathing and is nontoxic- appearing. Low suspicion for any DKA, sepsis, meningitis, severe dehydration, respiratory compromise, or other systemic emergent condition at this time. Patient to monitor symptoms closely and seek medical attention with any acute changes. Conservative measures otherwise for symptoms. Recheck with your PCM in 3-5 days. Return to the ED with any worsening/concerning symptoms otherwise as reviewed discharge. Patient is in agreement. - Vital Signs Vital signs: Temp Pulse Resp BP Pulse Ox 98.6 F 72 20 139/70 H 100 06/23/17 22:27 06/23/17 22:27 06/23/17 22:27 06/23/17 22:27 06/23/17 22:27 - Laboratory Laboratory results interpreted by me: 06/23/17 22:30 POC Glucose 251 H Discharge - Discharge Clinical Impression: Elevated glucose, Cough Condition: Stable Disposition: HOME, SELF-CARE Instructions: Upper Respiratory Illness ([facility]) Additional Instructions: Maintain adequate fluid intake Take meds as directed Monitor blood glucose levels twice daily and keep a log Low carb/sugar diet tylenol/ibuprofen as needed over the counter cold medication as needed for symptoms Humidified air may help Wash your hands regularly Wear a mask when coughing F/u: with your PCM in 3-5 days for a recheck Return to the ED with any fever, worsening pain, chest pain, palpitations, syncope, worsening AYALA, neck pain/stiffness, shortness of breath, wheezing, drooling, trouble swallowing/breathing, abdominal pain, n/v/d, rash, or worsening/concerning symptoms otherwise. Prescriptions: Dapagliflozin/Metformin HCl [Xigduo Xr 5 mg-1,000 mg Tablet] 1 each PO QAM #15 tab.bp.24h Referrals: JORGE BERRY DO [Primary Care Provider] - Follow up in 3-5 days
[2017-06-24 01:45] VITALS: BP 123/72
== END 2017-06-24 01:44 | disposition home or self-care (01) ==
LOC: ER 21:50
DX: E11.65 Type 2 diabetes mellitus with hyperglycemia (principal); R05 Cough; I10 Essential (primary) hypertension; J44.9 Chronic obstructive pulmonary disease, unspecified; R60.0 Localized edema; Z87.891 Personal history of nicotine dependence
CPT/HCPCS: 82962; 99285

== ENCOUNTER 2017-11-27 11:49 | Emergency (ER) | payer OTHER ==
--- NOTE | 2017-11-27 12:07 | ER Document Report ---
ED General - General Chief Complaint: Cold Symptoms Stated Complaint: UPPER RESP SX Time Seen by Provider: 11/27/17 12:02 TRAVEL OUTSIDE OF THE [place] IN LAST 30 DAYS: No - HPI Notes: 52-year-old female presents with cough. Patient states she had a URI approximately a month ago at that time consisted of cough runny nose congestion and sore throat. This is resolved she has had now persistent cough. She does continue to smoke and has a history of COPD. No chest pain. No fever, no unplanned weight loss. No other modifying factors, no other associated symptoms , no other provocative or palliative factors. - Related Data Allergies/Adverse Reactions: No Known Drug Allergies Allergy (Unknown, Verified 01/08/17 16:37) Past Medical History - Social History Smoking Status: Current Every Day Smoker Drug Abuse: None Family History: None - Past Medical History Cardiac Medical History: Reports: Hx Hypercholesterolemia, Hx Hypertension Denies: Hx Congestive Heart Failure, Hx Heart Attack Pulmonary Medical History: Reports: Hx COPD Denies: Hx Tuberculosis Neurological Medical History: Denies: Hx Seizures Endocrine Medical History: Reports: Hx Diabetes Mellitus Type 2 Renal/ Medical History: Denies: Hx Peritoneal Dialysis GI Medical History: Reports: Hx Gastroesophageal Reflux Disease, Hx Hiatal Hernia Psychiatric Medical History: Reports: Hx Depression Past Surgical History: Reports: Hx Tubal Ligation. Denies: Hx Pacemaker - Immunizations Hx Diphtheria, Pertussis, Tetanus Vaccination: Yes Hx Pneumococcal Vaccination: 01/07/12 Review of Systems - Review of Systems Notes: Review of systems as in the history of present illness, otherwise negative x 10 systems. Physical Exam - Vital signs Vitals: Temp Pulse Resp BP Pulse Ox 97.9 F 72 16 133/79 H 98 11/27/17 11:53 11/27/17 11:53 11/27/17 11:53 11/27/17 11:53 11/27/17 11:53 - Notes Notes: General: Well developed . HEENT: Normocephalic, atraumatic. Pupils equal round reactive to light. No JVD. Chest: No trauma. Respiratory: Good air exchange, normal excursion. Cardiac: Regular rhythm. No murmurs or gallops. Abdomen: Soft, benign. Nondistended. Nontender. Back: No asymmetry or gross abnormality. Motor: Grossly normal power and tone. Neurologic: Alert, nonfocal. Cranial nerves II-12 are intact. Sensation intact. Vascular: Well perfused. Normal peripheral pulses. Skin: No petechiae or purpura. Course - Re-evaluation Re-evalutation: 11/27/17 12:07 Well-appearing 52-year-old female with persistent cough. May be post URI bronchitic lung injury from persistent smoking. However, will obtain chest x- ray to rule out mass or pneumonia. 11/27/17 12:57 Plain films reviewed, no acute abnormality. Likely post URI bronchitis and cough. - Vital Signs Vital signs: Temp Pulse Resp BP Pulse Ox 97.9 F 72 16 133/79 H 98 11/27/17 11:53 11/27/17 11:53 11/27/17 11:53 11/27/17 11:53 11/27/17 11:53 Discharge - Discharge Clinical Impression: Cough Disposition: HOME, SELF-CARE Instructions: Cough Suppressant & Expectorant Medications, Bronchitis ([facility]) Prescriptions: Benzonatate [Tessalon Perle 100 mg Capsule] 100 mg PO Q8HP PRN #40 cap PRN Reason: Referrals: JORGE BERRY DO [Primary Care Provider] - Follow up as needed
[2017-11-27 12:12] VITALS: BP 133/79
--- NOTE | 2017-11-27 12:43 | RADIOLOGY REPORT (SQ) ---
EXAM DESCRIPTION: CHEST 2 VIEWS COMPLETED DATE/TIME: 11/27/2017 12:32 pm REASON FOR STUDY: Persistent cough COMPARISON: 12/04/2016 EXAM PARAMETERS: NUMBER OF VIEWS: two views TECHNIQUE: Digital Frontal and Lateral radiographic views of the chest acquired. RADIATION DOSE: NA LIMITATIONS: none FINDINGS: LUNGS AND PLEURA: No opacities, masses or pneumothorax. No pleural effusion. MEDIASTINUM AND HILAR STRUCTURES: No masses or contour abnormalities. HEART AND VASCULAR STRUCTURES: Heart normal size. No evidence for failure. BONES: No acute findings. HARDWARE: None in the chest. OTHER: No other significant finding. IMPRESSION: NO ACUTE RADIOGRAPHIC FINDING IN THE CHEST. TECHNICAL DOCUMENTATION: JOB ID: [id number] [employer]- All Rights Reserved Reading location - IP/workstation name: [email or web address]
== END 2017-11-27 13:05 | disposition home or self-care (01) ==
LOC: ER 11:49
DX: R05 Cough (principal); R09.89 Other specified symptoms and signs involving the circulatory and respiratory systems; R09.81 Nasal congestion; J02.9 Acute pharyngitis, unspecified; I10 Essential (primary) hypertension; J44.9 Chronic obstructive pulmonary disease, unspecified; E11.9 Type 2 diabetes mellitus without complications; F17.200 Nicotine dependence, unspecified, uncomplicated
CPT/HCPCS: 71046; 99283

== ENCOUNTER 2018-03-02 15:10 | Emergency (ER) | payer OTHER ==
[2018-03-02] MEDS ORDERED: NORMAL SALINE 1000 ML 1,000 ML IV ONE (15:41)
[2018-03-02] MEDS ORDERED: ONDANSETRON HCL INJ/PF 4 MG/2 ML SDV IV ONE (15:42)
[2018-03-02 16:12] LABS: ABSOLUTE BASOPHILS # (AUTO) 0.1 10^3/uL (0.0-0.2); ABSOLUTE EOSINOPHILS # (AUTO) 0.2 10^3/uL (0.0-0.6); ABSOLUTE LYMPHOCYTES (AUTO) 1.7 10^3/uL (0.5-4.7); ABSOLUTE MONOCYTES (AUTO) 0.4 10^3/uL (0.1-1.4); ABSOLUTE NEUT (AUTO) 4.9 10^3/uL (1.7-8.2); EOSINOPHILS % (AUTO) 2.9 % (0-6); HEMATOCRIT 40.3 % (36.0-47.0); HEMOGLOBIN 13.9 g/dL (12.0-15.5); LYMPHOCYTES % (AUTO) 23.4 % (13-45); MEAN CORPUSCULAR HEMOGLOBIN 34.5 pg (27.0-33.4); MEAN CORPUSCULAR HGB CONC 34.6 g/dL (32.0-36.0); MEAN CORPUSCULAR VOLUME 100 fl (80-97); MONOCYTES % (AUTO) 5.5 % (3-13); PLATELET COUNT 228 10^3/uL (150-450); RED BLOOD COUNT 4.04 10^6/uL (3.72-5.28); RED CELL DISTRIBUTION WIDTH 14.1 % (11.5-14.0); SEGMENTED NEUTROPHILS % (AUTO) 67.2 % (42-78); TOTAL CELLS COUNTED % (AUTO) 100 %; WHITE BLOOD COUNT 7.3 10^3/uL (4.0-10.5)
[2018-03-02 16:36] LABS: ALANINE AMINOTRANSFERASE 21 U/L (9-52); ALBUMIN 3.7 g/dL (3.5-5.0); ALKALINE PHOSPHATASE 116 U/L (38-126); ANION GAP 11 (5-19); ASPARTATE AMINO TRANSFERASE 33 U/L (14-36); BILIRUBIN,DIRECT 0.2 mg/dL (0.0-0.4); BILIRUBIN,TOTAL 0.4 mg/dL (0.2-1.3); BLOOD UREA NITROGEN 16 mg/dL (7-20); CALCIUM 8.6 mg/dL (8.4-10.2); CARBON DIOXIDE 24 mmol/L (22-30); CHLORIDE 102 mmol/L (98-107); LIPASE 355.5 U/L (23-300); POTASSIUM 4.2 mmol/L (3.6-5.0); SODIUM 136.5 mmol/L (137-145); TOTAL PROTEIN 6.9 g/dL (6.3-8.2)
[2018-03-02 16:44] LABS: ALCOHOL < 10 mg/dL (NONE DETECTED)
[2018-03-02 16:46] LABS: GLUCOSE 410 mg/dL (75-110)
[2018-03-02] MEDS ORDERED: INSULIN LISPRO 100 UNIT/ML 3 ML VIAL SUBCUT ONE (17:30)
--- NOTE | 2018-03-02 18:24 | EKG REPORT ---
SEVERITY:- BORDERLINE ECG - SINUS RHYTHM LOW VOLTAGE IN FRONTAL LEADS CONSIDER ANTERIOR INFARCT : Confirmed by: Bucky Solorio MD 02-Mar-2018 18:24:17
--- NOTE | 2018-03-02 18:40 | ER Document Report ---
ED General - General Chief Complaint: High Blood Sugar Stated Complaint: BLOOD SUGAR ISSUES Time Seen by Provider: 03/02/18 15:40 Notes: Patient is an insulin-dependent diabetic, first diagnosed about 10 years ago. She does not have an insulin "major" and has not been taking her insulin for several months. Yesterday she was nauseated but not vomiting. Feels weak today. Today, she has developed diarrhea. She was looking for a leak underneath her daughter's van, and crawled underneath the vehicle just before her symptoms began. The vehicle was not on and there were no fumes noted. She has not had any chest pain or shortness of breath. She does have a history of COPD and she has had some cough. Is not aware of any fever. TRAVEL OUTSIDE OF THE [place] IN LAST 30 DAYS: No - Related Data Allergies/Adverse Reactions: No Known Drug Allergies Allergy (Unknown, Verified 01/08/17 16:37) Past Medical History - Social History Smoking Status: Current Every Day Smoker Family History: None Patient has suicidal ideation: No Patient has homicidal ideation: No - Past Medical History Cardiac Medical History: Reports: Hx Hypercholesterolemia, Hx Hypertension Pulmonary Medical History: Reports: Hx COPD Denies: Hx Tuberculosis Neurological Medical History: Denies: Hx Seizures Endocrine Medical History: Reports: Hx Diabetes Mellitus Type 1, Hx Diabetes Mellitus Type 2 GI Medical History: Reports: Hx Gastroesophageal Reflux Disease, Hx Hiatal Hernia Psychiatric Medical History: Reports: Hx Anxiety, Hx Depression Past Surgical History: Reports: Hx Tubal Ligation. Denies: Hx Pacemaker - Immunizations Hx Diphtheria, Pertussis, Tetanus Vaccination: Yes Hx Pneumococcal Vaccination: 01/07/12 Review of Systems - Review of Systems Notes: REVIEW OF SYSTEMS: CONSTITUTIONAL : Denies fever. EENT: Denies eye, ear, nose or mouth or throat pain or other symptoms. CARDIOVASCULAR: Denies chest pain. RESPIRATORY: Has some cough, but no chest congestion, or shortness of breath. GASTROINTESTINAL: Denies abdominal pain but has had nausea, vomiting, and diarrhea. GENITOURINARY: Denies symptoms like a UTI, difficulty or painful urinating, urinary frequency, blood in urine. MUSCULOSKELETAL: Denies back or neck pain. Denies joint pain or swelling. SKIN: Denies rash or skin lesions. NEUROLOGICAL: denies LOC or altered mental status. Denies headache. Denies sensory loss or motor deficits. ALL OTHER SYSTEMS REVIEWED AND NEGATIVE. Physical Exam - Vital signs Vitals: Temp Pulse Resp BP Pulse Ox 97.6 F 65 12 134/70 H 100 03/02/18 15:22 03/02/18 15:22 03/02/18 15:22 03/02/18 15:22 03/02/18 15:22 Interpretation: Normal Notes: PHYSICAL EXAMINATION: GENERAL: Well-appearing, in no acute distress. Vital signs are all normal. HEAD: Atraumatic, normocephalic. EYES: Pupils equal round and reactive to light, extraocular movements intact. ENT: oropharynx clear without exudates. Moist mucous membranes. NECK: Normal range of motion, supple. LUNGS: Breath sounds clear and equal bilaterally. HEART: Regular rate and rhythm without murmurs. ABDOMEN: Soft, nontender. No guarding or rebound. No masses. BACK: No tenderness throughout entire back. EXTREMITIES: Normal range of motion without pain. NEUROLOGICAL: Normal speech, normal gait. Normal sensory, motor, and reflex exams. Awake, alert, and oriented x3. PSYCH: Normal mood, normal affect. SKIN: Warm, dry, no rashes. Course - Re-evaluation Re-evalutation: 03/02/18 19:54 Patient's workup was essentially normal except for her blood sugar in the 400s. She was given a liter of saline. 10 units of regular insulin subcu. Advised the patient of the importance of getting her prescription filled, which she says she has had a local pharmacy and can pick it up now. - Vital Signs Vital signs: Temp Pulse Resp BP Pulse Ox 98.1 F 56 L 16 107/63 100 03/02/18 18:48 03/02/18 18:48 03/02/18 18:48 03/02/18 18:48 03/02/18 18:48 - Laboratory Result Diagrams: 03/02/18 15:57 03/02/18 15:57 Laboratory results interpreted by me: 03/02/18 03/02/18 15:57 15:57 MCV 100 H MCH 34.5 H RDW 14.1 H Sodium 136.5 L Glucose 410 H* Lipase 355.5 H Discharge - Discharge Clinical Impression: Hyperglycemia, Nausea vomiting and diarrhea, COPD (chronic obstructive pulmonary disease) Condition: Stable Disposition: HOME, SELF-CARE Additional Instructions: DIABETES: You have an abnormally high blood sugar, suspicious for diabetes. Not all high blood sugar requires long-term treatment. High blood sugar can be due to medications, , or the stress of illness. (These cases are "borderline diabetes.") If the doctor feels your high blood sugar might get better with time, you may not require treatment now. It's very important that you follow through. Uncontrolled high blood sugar leads to early heart disease, strokes, nerve damage, eye damage, and kidney damage. All diabetics should follow a diet designed to control the blood sugar. Overweight diabetics should exercise regularly and lose weight. If this is not sufficient to control the blood sugar, pills or insulin shots are necessary. Younger people who develop diabetes almost always require insulin daily. Home testing of blood sugars or urine sugar is required. Diabetic teaching is available to help you figure insulin doses and monitor the blood sugar. Call the physician if there is faintness, excess sleepiness, or very rapid breathing. If hypoglycemia (LOW blood sugar) develops, symptoms are shakiness, weakness, sweating, and confusion. In this case, you should eat or drink something with sugar at once. INSULIN: Insulin is a natural hormone that lowers blood sugar. Normal blood sugar prevents complications of diabetes. For most diabetics, insulin is the best way to treat the illness. Be sure you know how to measure the insulin correctly. Insulin is measured in "units." There are three types of insulin: N (NPH or long acting), R (regular or short acting), and L (Lente or very long acting). Be sure you are using the right amount of each type. Insulin must be injected into the fat. You can use the abdomen, upper arms , and thighs. Select a different injection site every time. Wipe the site with alcohol before injecting. When first starting insulin, some adjusting of the insulin dose is necessary. Keep a record of each insulin dose and time of injection, and of the blood sugar and the time you test it. Sometimes insulin can make the blood sugar too low. If you become dizzy, sweaty, shaky, or confused, you may be having a hypoglycemic episode. Immediately use juice or some other sweet food. Call the doctor if the symptoms don't go away. NORMAL EXAM AND WORKUP: At this time, except for your elevated blood sugar, your examination and workup show no significant abnormality. No significant abnormal physical findings were noted. All laboratory, EKG, and imaging (x-ray, CT scans, ultrasound) studies that were ordered show no significant abnormality. Although your examination and all studies that were ordered showed no significant abnormal finding, there are no examinations and no studies that are 100% accurate. There is always the possibility that some abnormality could exist and not be detected with physical examination or within the limits and capabilities of laboratory and other studies. You should return or follow up as you were instructed on your visit today for further evaluation if your symptoms do not resolve. Intravenous (IV) Fluids As part of your care today, you received intravenous (IV) fluids. IV fluids are administered to patients who are dehydrated or to those who have certain chemical (electrolyte) abnormalities that need correcting. Get your insulin from your local pharmacy and begin taking it as prescribed. FOLLOW-UP CARE: If you have been referred to a physician for follow-up care, call the physician s office for an appointment as you were instructed or within the next two days. If you experience worsening or a significant change in your symptoms, notify the physician immediately or return to the Emergency Department at any time for re-evaluation. Follow-up with your primary care physician in the next week. Forms: Return to Work
[2018-03-02 18:51] VITALS: BP 107/63
== END 2018-03-02 18:52 | disposition home or self-care (01) ==
LOC: ER 15:10
DX: E11.65 Type 2 diabetes mellitus with hyperglycemia (principal); R19.7 Diarrhea, unspecified; J44.9 Chronic obstructive pulmonary disease, unspecified; R11.2 Nausea with vomiting, unspecified; F17.200 Nicotine dependence, unspecified, uncomplicated; E78.00 Pure hypercholesterolemia, unspecified; I10 Essential (primary) hypertension; Z98.51 Tubal ligation status
CPT/HCPCS: 93005; 99285; 96361; 96374; 36415; 82962; 80307; 83690; 84703; 85025; 80053; 93010; J1815; J2405; J7030

== ENCOUNTER → 2018-07-29 | Outpatient (CLI) | payer OTHER ==
[2018-07-29 09:48] LABS: ALANINE AMINOTRANSFERASE 16 U/L (9-52); ALKALINE PHOSPHATASE 123 U/L (38-126); ANION GAP 11 (5-19); ASPARTATE AMINO TRANSFERASE 13 U/L (14-36); BILIRUBIN,DIRECT 0.3 mg/dL (0.0-0.4); BILIRUBIN,TOTAL 0.4 mg/dL (0.2-1.3); BLOOD UREA NITROGEN 22 mg/dL (7-20); CALCIUM 10.1 mg/dL (8.4-10.2); CARBON DIOXIDE 29 mmol/L (22-30); CHLORIDE 98 mmol/L (98-107); CHOLESTEROL 199.89 mg/dL (0-200); POTASSIUM 5.1 mmol/L (3.6-5.0); SODIUM 137.6 mmol/L (137-145); TOTAL PROTEIN 6.7 g/dL (6.3-8.2); TRIGLYCERIDES 422 mg/dL (<150)
[2018-07-29 09:59] LABS: DIRECT LDL 109 mg/dL (<100)
[2018-07-29 10:08] LABS: GLUCOSE 478 mg/dL (75-110)
[2018-07-31 03:36] LABS: CREATININE URINE 26.7 mg/dL (Not Estab.)
== END ==
LOC: OD 08:19
PROVIDERS: ATTEND Family Medicine
DX: E11.40 Type 2 diabetes mellitus with diabetic neuropathy, unspecified (principal)
CPT/HCPCS: 36415; 80053; 80061; 82043; 82570; 83036

== ENCOUNTER → 2018-10-10 | Outpatient (CLI) | payer OTHER ==
--- NOTE | 2018-10-10 21:05 | XCELERA REPORT ---
[address] [address] Transthoracic Echocardiogram Report Name: ERENDIRA BECKFORD Age: 52 yrs Gender: Female : 1965 Patient Status: Outpatient Patient Location: Study Date: 10/10/2018 08:20 AM Height: 60 in Weight: 128 lb BSA: 1.5 m2 Procedure: A two-dimensional transthoracic echocardiogram with color flow and Doppler was performed. Study Quality: Fair. Reason For Study: ABNORMAL EKG History: ABNORMAL EKG. Ordering Physician: HUBERT CARTY Performed By: Dylan Thapa Interpretation Summary The left ventricle is normal in size. There is normal left ventricular wall thickness. LV EF is 65% The left ventricular ejection fraction is within normal limits. Normal diastolic function by tissue dopplers. The left ventricular wall motion is normal. There is no thrombus. There is no ventricular septal defect visualized. The right ventricle is normal in size and function. The right atrium is normal. The left atrial size is normal. The interatrial septum is intact with no evidence for an atrial septal defect. There is no Doppler evidence for an interatrial shunt There is no evidence of mitral valve prolapse. There is no vegetation seen on the mitral valve. There is no mitral valve stenosis. There is no mitral regurgitation noted. There is no aortic valvular vegetation. There is no aortic valve stenosis There is no LVOT obstruction. No aortic regurgitation is present. There is no tricuspid stenosis. There is a trace amount of tricuspid regurgitation Unable to calculate RVSP due lack of TR jet. There is no pulmonic valvular stenosis. There is no pulmonic valvular regurgitation. The aortic root is normal size. The inferior vena cava appeared normal and decreased > 50% with respiration (RAP 5-10 mmHg) There is no pericardial effusion. MMode/2D Measurements & Calculations RVDd: 2.3 cm LVIDd: 3.6 cm FS: 28.0 % Ao root diam: 2.3 cm IVSd: 0.78 cm LVIDs: 2.6 cm EDV(Teich): 52.7 ml Ao root area: 4.1 cm2 LVPWd: 0.85 cm ESV(Teich): 23.6 ml LA dimension: 2.7 cm EF(Teich): 55.1 % Doppler Measurements & Calculations MV E max brayden: MV P1/2t max brayden: Ao V2 max: LV V1 max P.7 cm/sec 80.1 cm/sec 114.0 cm/sec 2.7 mmHg MV A max brayden: MV P1/2t: 84.2 msec Ao max PG: LV V1 max: 82.5 cm/sec MVA(P1/2t): 2.6 cm2 5.2 mmHg 82.1 cm/sec MV E/A: 0.93 MV dec slope: 278.4 cm/sec2 MV dec time: 0.20 sec PA V2 max: MV P1/2t-pr_phl: 80.2 cm/sec 84.2 msec PA max P.6 mmHg Left Ventricle The left ventricle is normal in size. There is normal left ventricular wall thickness. LV EF is 65%. The left ventricular ejection fraction is within normal limits. Normal diastolic function by tissue dopplers. The left ventricular wall motion is normal. There is no thrombus. There is no ventricular septal defect visualized. Right Ventricle The right ventricle is normal in size and function. Atria The right atrium is normal. The left atrial size is normal. The interatrial septum is intact with no evidence for an atrial septal defect. There is no Doppler evidence for an interatrial shunt. Mitral Valve There is no evidence of mitral valve prolapse. There is no vegetation seen on the mitral valve. There is no mitral valve stenosis. There is no mitral regurgitation noted. Aortic Valve There is no aortic valvular vegetation. There is no aortic valve stenosis. There is no LVOT obstruction. No aortic regurgitation is present. Tricuspid Valve There is no tricuspid stenosis. There is a trace amount of tricuspid regurgitation. Unable to calculate RVSP due lack of TR jet. Pulmonic Valve There is no pulmonic valvular stenosis. There is no pulmonic valvular regurgitation. Great Vessels The aortic root is normal size. The inferior vena cava appeared normal and decreased > 50% with respiration (RAP 5-10 mmHg). Effusions There is no pericardial effusion. : HUBERT CARTY > Dot Yeh
== END ==
LOC: SP 07:56
PROVIDERS: ATTEND Family Medicine
DX: R94.31 Abnormal electrocardiogram [ECG] [EKG] (principal); E11.65 Type 2 diabetes mellitus with hyperglycemia
CPT/HCPCS: 93306

== ENCOUNTER 2018-12-25 16:01 | Observation (INO) | payer OTHER ==
[2018-12-25] MEDS ORDERED: ASPIRIN 81 MG TABLET, CHEWABLE PO ONE (17:56)
[2018-12-25] MEDS ORDERED: ASPIRIN 81 MG TABLET, CHEWABLE ONE (17:58)
--- NOTE | 2018-12-25 18:35 | RADIOLOGY REPORT (SQ) ---
EXAM DESCRIPTION: CHEST 2 VIEWS COMPLETED DATE/TIME: 12/25/2018 6:11 pm REASON FOR STUDY: Chest pain COMPARISON: None. EXAM PARAMETERS: NUMBER OF VIEWS: two views TECHNIQUE: Digital Frontal and Lateral radiographic views of the chest acquired. RADIATION DOSE: NA LIMITATIONS: none FINDINGS: LUNGS AND PLEURA: Stable, persistent appearance of a probable calcified granuloma within t he right middle lobe. No focal consolidation, pleural effusion, or pneumothorax. MEDIASTINUM AND HILAR STRUCTURES: No masses or contour abnormalities. HEART AND VASCULAR STRUCTURES: Heart normal size. No evidence for failure. BONES: No acute findings. HARDWARE: None in the chest. OTHER: No other significant finding. IMPRESSION: NO ACUTE RADIOGRAPHIC FINDING IN THE CHEST. TECHNICAL DOCUMENTATION: JOB ID: [id number] [employer]- All Rights Reserved Reading location - IP/workstation name: [email or web address]
[2018-12-25 18:47] LABS: ABSOLUTE BASOPHILS # (AUTO) 0.1 10^3/uL (0.0-0.2); ABSOLUTE EOSINOPHILS # (AUTO) 0.2 10^3/uL (0.0-0.6); ABSOLUTE LYMPHOCYTES (AUTO) 3.4 10^3/uL (0.5-4.7); ABSOLUTE MONOCYTES (AUTO) 0.4 10^3/uL (0.1-1.4); ABSOLUTE NEUT (AUTO) 4.3 10^3/uL (1.7-8.2); BASOPHILS % (AUTO) 0.8 % (0-2); EOSINOPHILS % (AUTO) 2.7 % (0-6); HEMATOCRIT 43.6 % (36.0-47.0); HEMOGLOBIN 15.3 g/dL (12.0-15.5); LYMPHOCYTES % (AUTO) 40.2 % (13-45); MEAN CORPUSCULAR HEMOGLOBIN 35.3 pg (27.0-33.4); MEAN CORPUSCULAR HGB CONC 35.2 g/dL (32.0-36.0); MEAN CORPUSCULAR VOLUME 100 fl (80-97); MONOCYTES % (AUTO) 4.9 % (3-13); PLATELET COUNT 296 10^3/uL (150-450); RED BLOOD COUNT 4.34 10^6/uL (3.72-5.28); RED CELL DISTRIBUTION WIDTH 12.5 % (11.5-14.0); SEGMENTED NEUTROPHILS % (AUTO) 51.4 % (42-78); TOTAL CELLS COUNTED % (AUTO) 100 %; WHITE BLOOD COUNT 8.4 10^3/uL (4.0-10.5)
[2018-12-25 18:58] LABS: ALKALINE PHOSPHATASE 144 U/L (38-126); ANION GAP 11 (5-19); ASPARTATE AMINO TRANSFERASE 19 U/L (14-36); BILIRUBIN,DIRECT 0.2 mg/dL (0.0-0.4); BILIRUBIN,TOTAL 0.3 mg/dL (0.2-1.3); BLOOD UREA NITROGEN 25 mg/dL (7-20); CALCIUM 9.7 mg/dL (8.4-10.2); CARBON DIOXIDE 27 mmol/L (22-30); CHLORIDE 95 mmol/L (98-107); CREATINE KINASE 77 U/L (30-135); POTASSIUM 4.4 mmol/L (3.6-5.0); TOTAL PROTEIN 6.7 g/dL (6.3-8.2)
[2018-12-25 19:10] LABS: CREATINE KINASE MB 1.47 ng/mL (<4.55); GLUCOSE 480 mg/dL (75-110)
[2018-12-25 19:11] LABS: TROPONIN I < 0.012 ng/mL
[2018-12-25] MEDS ORDERED: INSULIN REG, HUMAN 100 UNIT/ML 3 ML VIAL (PYX) IV ONE (20:00)
[2018-12-25] MEDS ORDERED: NORMAL SALINE 1000 ML 1,000 ML IV ONE (20:01)
--- NOTE | 2018-12-25 20:09 | ER Document Report ---
ED Cardiac - General Chief Complaint: Chest Pain Stated Complaint: CHEST PAIN Time Seen by Provider: 12/25/18 20:00 Primary Care Provider: HUBERT CARTY MD [Primary Care Provider] - Follow up as needed Mode of Arrival: Ambulatory Information source: Patient TRAVEL OUTSIDE OF THE [place] IN LAST 30 DAYS: No - HPI Notes: Patient presents with chest pain. She states been going on today all day. It felt like "an elephant sitting on my chest". It was moderate and constant. Nothing made it better or worse. She states since she has been here and received 4 aspirin she is now essentially pain-free. There is no significant radiation the pain. No previous coronary artery disease. She states she did have a stress test 4 years ago that was normal. She states her mom has had a heart attack. She states that she does not take her insulin or check her blood sugars. She states she does have high blood pressure and high cholesterol as well. She had some mild shortness of breath no sweating. No significant nausea. - Related Data Allergies/Adverse Reactions: No Known Drug Allergies Allergy (Unknown, Verified 01/08/17 16:37) Past Medical History - Social History Smoking Status: Current Every Day Smoker Chew tobacco use (# tins/day): No Frequency of alcohol use: None Drug Abuse: None Family History: None Patient has suicidal ideation: No Patient has homicidal ideation: No - Past Medical History Cardiac Medical History: Reports: Hx Hypercholesterolemia, Hx Hypertension Denies: Hx Congestive Heart Failure, Hx Coronary Artery Disease, Hx Heart Attack Pulmonary Medical History: Reports: Hx COPD Denies: Hx Tuberculosis Neurological Medical History: Denies: Hx Cerebrovascular Accident, Hx Seizures Endocrine Medical History: Reports: Hx Diabetes Mellitus Type 1, Hx Diabetes Mellitus Type 2 Renal/ Medical History: Denies: Hx Peritoneal Dialysis GI Medical History: Reports: Hx Gastroesophageal Reflux Disease, Hx Hiatal Hernia Psychiatric Medical History: Reports: Hx Anxiety, Hx Depression Past Surgical History: Reports: Hx Tubal Ligation. Denies: Hx Pacemaker - Immunizations Hx Diphtheria, Pertussis, Tetanus Vaccination: Yes Hx Pneumococcal Vaccination: 01/07/12 Review of Systems - Review of Systems Constitutional: denies: Chills, Fever Cardiovascular: Chest pain, Dyspnea Respiratory: Short of breath. denies: Cough Gastrointestinal: denies: Diarrhea, Vomiting -: Yes All other systems reviewed and negative Physical Exam - Vital signs Vitals: Temp Pulse Resp BP Pulse Ox 98.1 F 104 H 18 158/74 H 95 12/25/18 16:10 12/25/18 16:10 12/25/18 16:10 12/25/18 16:10 12/25/18 16:10 Interpretation: Normal - General General appearance: Appears well, Alert - HEENT Head: Normocephalic, Atraumatic Eyes: Normal Pupils: PERRL - Respiratory Respiratory status: No respiratory distress Chest status: Nontender Breath sounds: Normal Chest palpation: Normal - Cardiovascular Rhythm: Regular Heart sounds: Normal auscultation Murmur: No - Abdominal Inspection: Normal Distension: No distension Bowel sounds: Normal Tenderness: Nontender Organomegaly: No organomegaly - Back Back: Normal, Nontender - Extremities General upper extremity: Normal inspection, Nontender, Normal color, Normal ROM, Normal temperature General lower extremity: Normal inspection, Nontender, Normal color, Normal ROM, Normal temperature, Normal weight bearing. No: Carolyn's sign - Neurological Neuro grossly intact: Yes Cognition: Normal Orientation: AAOx4 [place] Coma Scale Eye Opening: Spontaneous Delfin Coma Scale Verbal: Oriented Delfin Coma Scale Motor: Obeys Commands [place] Coma Scale Total: 15 Speech: Normal Motor strength normal: LUE, RUE, LLE, RLE Sensory: Normal - Psychological Associated symptoms: Normal affect, Normal mood - Skin Skin Temperature: Warm Skin Moisture: Dry Skin Color: Normal Course - Vital Signs Vital signs: Temp Pulse Resp BP Pulse Ox 98.1 F 104 H 16 148/85 H 92 12/25/18 16:10 12/25/18 16:10 12/25/18 19:01 12/25/18 19:00 12/25/18 19:01 - Laboratory Result Diagrams: 12/25/18 18:15 12/25/18 18:15 Laboratory results interpreted by me: 12/25/18 12/25/18 18:15 18:15 MCV 100 H MCH 35.3 H Sodium 133.1 L Chloride 95 L BUN 25 H Glucose 480 H* Alkaline Phosphatase 144 H 12/25/18 20:06 Laboratory 12/25/18 12/25/18 12/25/18 18:15 18:15 18:15 WBC 8.4 RBC 4.34 Hgb 15.3 Hct 43.6 MCV 100 H MCH 35.3 H MCHC 35.2 RDW 12.5 Plt Count 296 Seg Neutrophils % 51.4 Lymphocytes % 40.2 Monocytes % 4.9 Eosinophils % 2.7 Basophils % 0.8 Absolute Neutrophils 4.3 Absolute Lymphocytes 3.4 Absolute Monocytes 0.4 Absolute Eosinophils 0.2 Absolute Basophils 0.1 Sodium 133.1 L Potassium 4.4 Chloride 95 L Carbon Dioxide 27 Anion Gap 11 BUN 25 H Creatinine 0.94 Est GFR ( Amer) > 60 Est GFR (Non-Af Amer) > 60 Glucose 480 H* Calcium 9.7 Total Bilirubin 0.3 Direct Bilirubin 0.2 Neonat Total Bilirubin Not Reportable Neonat Direct Bilirubin Not Reportable Neonat Indirect Bili Not Reportable AST 19 ALT 22 Alkaline Phosphatase 144 H Creatine Kinase 77 CK-MB (CK-2) 1.47 Troponin I < 0.012 Total Protein 6.7 Albumin 4.0 - Diagnostic Test Radiology reviewed: Reports reviewed - No significant process on portable chest x-ray. Radiology results interpreted by wa: 12/25/18 20:07 Chest X-Ray 12/25/18 00:00 IMPRESSION: NO ACUTE RADIOGRAPHIC FINDING IN THE CHEST. - EKG Interpretation by Ak EKG shows normal: Sinus rhythm Rate: Tachycardia - 101 [place]/QRS: No: Right axis deviation, Left axis deviation Discharge - Discharge Clinical Impression: Chest pain Qualifiers: Chest pain type: unspecified Qualified Code(s): R07.9 - Chest pain, unspecified Uncontrolled diabetes mellitus Qualifiers: Diabetes mellitus type: type 1 Glycemic state: with hyperglycemia Qualified Code(s): E10.65 - Type 1 diabetes mellitus with hyperglycemia Condition: Stable Disposition: ADMITTED INPATIENT Admitting Provider: Rachell (Hospitalist) Unit Admitted: Telemetry Referrals: HUBERT CARTY MD [Primary Care Provider] - Follow up as needed
[2018-12-25] MEDS ORDERED: ZOLPIDEM TARTRATE 5 MG TABLET PO PRN (21:19)
[2018-12-25] MEDS ORDERED: MAG HYDROX/AL HYDROX/SIMETH SUSP 30 ML UDCUP PO PRN (21:19)
[2018-12-25] MEDS ORDERED: LEVALBUTEROL HCL NEB 0.63 MG/3 ML AMPUL NEB PRN (21:19)
[2018-12-25] MEDS ORDERED: MAGNESIUM HYDROXIDE SUSP 30 ML UDCUP PO PRN (21:19)
[2018-12-25] MEDS ORDERED: ONDANSETRON HCL INJ/PF 4 MG/2 ML SDV IV PRN (21:19)
[2018-12-25] MEDS ORDERED: NICOTINE 21 MG/24 HR PATCH.TD24 TD PRN (21:23)
[2018-12-25] MEDS ORDERED: ACETAMINOPHEN 325 MG TABLET PO PRN (21:23)
[2018-12-25] MEDS ORDERED: MORPHINE SULFATE 10 MG/ML INJ IV PRN ×4 (21:23→22:39)
[2018-12-25] MEDS ORDERED: DEXTROSE 40% GEL 15 GM TUBE PO PRN ×2 (21:24)
[2018-12-25] MEDS ORDERED: GLUCAGON,HUMAN RECOMB 1 MG INJ IM PRN (21:24)
[2018-12-25] MEDS ORDERED: DEXTROSE 50%-WATER 25 GM/50 ML DISP.SYRIN IV PRN ×2 (21:24)
[2018-12-25] MEDS ORDERED: HYDRALAZINE HCL INJ/PF 20 MG/1 ML SDV IV PRN (21:25)
--- NOTE | 2018-12-25 22:25 | PDOC H&P ---
History of Present Illness Admission Date/PCP: 12/25/18 20:15 HUBERT CARTY MD Patient complains of: Chest pain History of Present Illness: ERENDIRA LOCKE is a 53 year old female who presented to the emergency room with an acute history of chest pain. The patient admits acute onset chest pain beginning the morning of admission and being present all day. She describes the pain as a constantly present, moderately severe, substernal pressure without radiation. Her chest pain was accompanied by mild dyspnea and nausea. She denies other associated signs and symptoms. She admits prior similar episodes and had a negative stress test done approximately 4 years ago. She has not iden tified any aggravating or ameliorating factors for her chest pain. In the emergency room the patient was found to have normal cardiac enzymes and an EKG that did not show evidence of acute myocardial ischemia or injury. She was subsequently admitted for further evaluation and treatment. Past Medical History Cardiac Medical History: Reports: Hyperlipidema, Hypertension Denies: Congestive Heart Failure, Coronary Artery Disease, Myocardial Infarction Pulmonary Medical History: Reports: Chronic Obstructive Pulmonary Disease (COPD) Denies: Asthma, Tuberculosis EENT Medical History: Denies: Cataracts, Ears - Hearing aids, Nose - Allergic rhinitis Neurological Medical History: Denies: Migraine, Multiple Sclerosis, Seizures Endocrine Medical History: Reports: Diabetes Mellitus Type 2, Obesity Denies: Diabetes Mellitus Type 1, Hyperthyroidism, Hypothyroidism Renal/ Medical History: Denies: Chronic Kidney Disease, Nephrolithiasis Malignancy Medical History: Reports: None GI Medical History: Reports: Gastroesophageal Reflux Disease, Hiatal Hernia Denies: Cirrhosis, Crohn's Disease, Hepatitis, Peptic Ulcer Disease, Ulcerative Colitis Musculoskeltal Medical History: Denies: Arthritis, Fibromyalgia Skin Medical History: Denies: Eczema, Psoriasis Psychiatric Medical History: Reports: Depression, Tobacco Dependency Denies: Alcohol Dependency, Substance Abuse Traumatic Medical History: Reports: None Hematology: Denies: Anemia, Bleeding Tendencies Infectious Medical History: Reports: None Past Surgical History Past Surgical History: Reports: Tubal Ligation Social History Information Source: Patient Lives with: Spouse/Significant other Smoking Status: Current Every Day Smoker Frequency of Alcohol Use: None Hx Recreational Drug Use: No Drugs: None Hx Prescription Drug Abuse: No - Advance Directive Resuscitation Status: Full Code Surrogate healthcare decision maker:: Jennifer Locke Family History Family History: CAD, DM, Malignancy. denies: CVA, Hypertension, Thyroid Disfunction Parental Family History Reviewed: Yes Children Family History Reviewed: No Sibling(s) Family History Reviewed.: Yes Medication/Allergy Home Medications: Atorvastatin Calcium [Lipitor 40 mg Tablet] 40 mg PO QHS 12/25/18 Lisinopril [Prinivil 2.5 mg Tablet] 2.5 mg PO DAILY 12/25/18 Allergies/Adverse Reactions: No Known Drug Allergies Allergy (Unknown, Verified 01/08/17 16:37) Review of Systems Constitutional: ABSENT: chills, fever(s) Eyes: ABSENT: visual disturbances, other - Ocular pain Ears: ABSENT: hearing changes, other - Ear pain Nose, Mouth, and Throat: ABSENT: mouth pain, sore throat Cardiovascular: PRESENT: as per HPI, chest pain, dyspnea on exertion. ABSENT: edema, orthropnea, palpitations Respiratory: PRESENT: as per HPI, dyspnea. ABSENT: cough Gastrointestinal: PRESENT: as per HPI, nausea. ABSENT: abdominal pain, consti pation, diarrhea, vomiting Genitourinary: ABSENT: dysuria, hematuria Musculoskeletal: ABSENT: back pain, joint swelling, muscle weakness Integumentary: ABSENT: pruritus, rash Neurological: ABSENT: confusion, convulsions, focal weakness, memory loss, syncope Psychiatric: ABSENT: anxiety, depression Endocrine: ABSENT: cold intolerance, heat intolerance Hematologic/Lymphatic: ABSENT: easy bleeding, easy bruising Allergic/Immunologic: ABSENT: seasonal rhinorrhea Physical Exam Vital Signs: Temp Pulse Resp BP Pulse Ox 98.1 F 104 H 16 148/85 H 92 12/25/18 16:10 12/25/18 16:10 12/25/18 19:01 12/25/18 19:00 12/25/18 19:01 General appearance: PRESENT: no acute distress, cooperative Head exam: PRESENT: atraumatic, normocephalic Eye exam: PRESENT: conjunctiva pink. ABSENT: conjunctival injection, scleral icterus Ear exam: PRESENT: normal external ear exam. ABSENT: bleeding, drainage Mouth exam: PRESENT: dry mucosa, neck supple Neck exam: ABSENT: JVD, thyromegaly, tracheal deviation Respiratory exam: PRESENT: clear to auscultation shana, symmetrical, unlabored Cardiovascular exam: PRESENT: RRR. ABSENT: clicks, gallop, rubs Pulses: PRESENT: normal radial pulses, normal dorsalis pedis pul Vascular exam: PRESENT: normal capillary refill. ABSENT: pallor GI/Abdominal exam: PRESENT: normal bowel sounds, soft. ABSENT: tenderness Rectal exam: PRESENT: deferred Extremities exam: ABSENT: joint swelling, pedal edema Musculoskeletal exam: PRESENT: full ROM, normal inspection. ABSENT: tenderness Neurological exam: PRESENT: alert, oriented to person, oriented to place, oriented to time, oriented to situation, CN II-XII grossly intact. ABSENT: motor sensory deficit Psychiatric exam: PRESENT: appropriate affect, normal mood Skin exam: PRESENT: dry, intact, warm. ABSENT: jaundice, rash, urticaria Results Laboratory Results: 12/25/18 18:15 12/25/18 18:15 12/25/18 12/25/18 18:15 18:15 WBC 8.4 RBC 4.34 Hgb 15.3 Hct 43.6 MCV 100 H MCH 35.3 H MCHC 35.2 RDW 12.5 Plt Count 296 Seg Neutrophils % 51.4 Lymphocytes % 40.2 Monocytes % 4.9 Eosinophils % 2.7 Basophils % 0.8 Absolute Neutrophils 4.3 Absolute Lymphocytes 3.4 Absolute Monocytes 0.4 Absolute Eosinophils 0.2 Absolute Basophils 0.1 Sodium 133.1 L Potassium 4.4 Chloride 95 L Carbon Dioxide 27 Anion Gap 11 BUN 25 H Creatinine 0.94 Est GFR ( Amer) > 60 Est GFR (Non-Af Amer) > 60 Glucose 480 H* Calcium 9.7 Total Bilirubin 0.3 AST 19 Alkaline Phosphatase 144 H Total Protein 6.7 Albumin 4.0 12/25/18 12/25/18 18:15 18:15 Creatine Kinase 77 CK-MB (CK-2) 1.47 Troponin I < 0.012 Impressions: Chest X-Ray 12/25/18 00:00 IMPRESSION: NO ACUTE RADIOGRAPHIC FINDING IN THE CHEST. Assessment and Plan - Diagnosis (1) Chest pain Qualifiers: Chest pain type: unspecified Qualified Code(s): R07.9 - Chest pain, unspecified Is this a current diagnosis for this admission?: Yes Plan: Serial cardiac enzymes and EKGs will be obtained. A Cardiolite stress test will be performed in the morning if her serial studies are negative. Patient will use morphine sulfate 2 to 4 mg IV every 2 hours on a as needed basis for chest pain using a sliding scale for dosing. (2) Diabetes mellitus type 2 in nonobese Is this a current diagnosis for this admission?: Yes Plan: The patient will be started on a recommended diabetic therapeutic plan (noncompliant with current NovoLog 70/30 20 units BID plan due to hypoglycemic episodes) and a diabetic diet. Before meals and at bedtime Accu-Cheks will be obtained and hyperglycemia will be treated with sliding scale insulin, hypoglycemia will be treated per protocol. Hemoglobin A1c will be obtained to assess her current diabetic therapy. (3) HTN (hypertension) Qualifiers: Hypertension type: essential hypertension Qualified Code(s): I10 - Essential (primary) hypertension Is this a current diagnosis for this admission?: Yes Plan: Patient will be continued on her usual antihypertensive regiment. Her blood pressure be monitored frequently throughout her hospital course. (4) HLD (hyperlipidemia) Qualifiers: Hyperlipidemia type: unspecified Qualified Code(s): E78.5 - Hyperlipidemia, unspecified Is this a current diagnosis for this admission?: Yes Plan: Patient be continued on her usual antihyperlipidemia therapy and a cardiac diet. A lipid profile will be obtained to assess the efficacy of her current therapy. (5) Tobacco use disorder, severe, dependence Is this a current diagnosis for this admission?: Yes Plan: Smoking cessation is advised and counseled briefly at the bedside. A nicotine replacement patch will be available for the patient's use if she so desires. - Time Time Spent with patient: 25-34 minutes Smoking Cessation Education: 3 to 10 minutes Medications reviewed and adjusted accordingly: Yes Anticipated discharge: Home - Inpatient Certification Based on my medical assessment, after consideration of the patient's comorbidities, presenting symptoms, or acuity I expect that the services needed warrant INPATIENT care.: Yes I certify that my determination is in accordance with my understanding of Medicare's requirements for reasonable and necessary INPATIENT services [42 CFR 412.3e].: Yes Medical Necessity: Significant Comorbidiites Make Outpatient Treatment Too Risky, Need Close Monitoring Due to Risk of Patient Decompensation, Need For Continuous Telemetry Monitoring, Risk of Complication if Not Cared For in Hospital
--- NOTE | 2018-12-25 22:28 | ADVANCED CARE ---
- Diagnosis (1) Chest pain Diagnosis Current: Yes (2) Diabetes mellitus type 2 in nonobese Diagnosis Current: Yes (3) HTN (hypertension) Diagnosis Current: Yes (4) HLD (hyperlipidemia) Diagnosis Current: Yes (5) Tobacco use disorder, severe, dependence Diagnosis Current: Yes Attendance: Patient and myself. Resuscitation Status: Full Code Discussion: After brief discussion patient is elected to remain full code for her resuscitation status on this admission. She has named Jennifer Locke, her daughter, as her designated surrogate medical decision-maker. Care Planning Goals: 1. Patient is full CODE STATUS for this admission. 2. Jennifer Locke is the patient's designated surrogate medical decision-maker. Document(s) Completed: Following entries be made to the patient's permanent medical record via this EMR entry: 1. Patient is full CODE STATUS for this admission. 2. Jennifer Locke is the patient's designated surrogate medical decision-maker. Time Spent: 3 minutes
[2018-12-25] MEDS ORDERED: INSULIN GLARGINE,HUM.REC.ANLOG 1,000 UNIT/10 ML VIAL (PYX) SUBCUT ONE (22:37)
[2018-12-25] MEDS: INSULIN GLARGINE,HUM.REC.ANLOG 1,000 UNIT/10 ML VIAL SUBCUT SCH (22:41)
[2018-12-25] MEDS: HEPARIN SOD (PORCINE) 5,000 UNIT/ML 1 ML VIAL SUBCUT SCH (22:41)
[2018-12-25] MEDS: FAMOTIDINE 20 MG TABLET PO SCH (22:42)
[2018-12-25] MEDS: INSULIN REG, HUMAN 100 UNIT/ML 3 ML VIAL (PYX) SUBCUT PRN (22:42)
[2018-12-25 23:12] LABS: FREE T3 3.02 pg/mL (2.77-5.27); FREE T4 (FREE THYROXINE) 1.15 ng/dL (0.78-2.19)
[2018-12-25 23:26] LABS: THYROID STIMULATING HORMONE 3.97 uIU/mL (0.47-4.68)
[2018-12-26 00:14] LABS: CREATINE KINASE MB 1.01 ng/mL (<4.55)
[2018-12-26 00:15] LABS: TROPONIN I < 0.012 ng/mL
[2018-12-26] MEDS: HEPARIN SOD (PORCINE) 5,000 UNIT/ML 1 ML VIAL SUBCUT SCH ×2 (05:57→13:39)
[2018-12-26 06:11] LABS: HEMATOCRIT 40.1 % (36.0-47.0); MEAN CORPUSCULAR HEMOGLOBIN 34.4 pg (27.0-33.4); MEAN CORPUSCULAR VOLUME 98 fl (80-97); PLATELET COUNT 261 10^3/uL (150-450); RED BLOOD COUNT 4.08 10^6/uL (3.72-5.28); RED CELL DISTRIBUTION WIDTH 12.5 % (11.5-14.0); WHITE BLOOD COUNT 6.7 10^3/uL (4.0-10.5)
[2018-12-26 06:37] LABS: ANION GAP 7 (5-19); BLOOD UREA NITROGEN 26 mg/dL (7-20); CALCIUM 9.3 mg/dL (8.4-10.2); CARBON DIOXIDE 27 mmol/L (22-30); CHLORIDE 105 mmol/L (98-107); CHOLESTEROL 179.81 mg/dL (0-200); GLUCOSE 145 mg/dL (75-110); POTASSIUM 4.1 mmol/L (3.6-5.0); TRIGLYCERIDES 510 mg/dL (<150)
[2018-12-26 06:47] LABS: CREATINE KINASE MB 1.06 ng/mL (<4.55)
[2018-12-26 06:49] LABS: DIRECT LDL 89 mg/dL (<100); TROPONIN I < 0.012 ng/mL
[2018-12-26] MEDS ORDERED: GLIMEPIRIDE 1 MG TABLET PO SCH (08:00)
--- NOTE | 2018-12-26 09:34 | EKG REPORT ---
SEVERITY:- ABNORMAL ECG - SINUS TACHYCARDIA LOW VOLTAGE IN FRONTAL LEADS BORDERLINE R WAVE PROGRESSION, ANTERIOR LEADS NONSPECIFIC T ABNORMALITIES, LATERAL LEADS : Confirmed by: Shannan Kay 26-Dec-2018 09:34:18
--- NOTE | 2018-12-26 09:34 | EKG REPORT ---
SEVERITY:- ABNORMAL ECG - SINUS RHYTHM LOW VOLTAGE IN FRONTAL LEADS CONSIDER ANTERIOR INFARCT NONSPECIFIC T ABNORMALITIES, LATERAL LEADS : Confirmed by: Shannan Kay 26-Dec-2018 09:34:08
[2018-12-26] MEDS ORDERED: DOCUSATE SODIUM 100 MG CAPSULE PO SCH (10:00)
[2018-12-26] MEDS: FAMOTIDINE 20 MG TABLET PO SCH (10:46)
[2018-12-26] MEDS: INSULIN GLARGINE,HUM.REC.ANLOG 1,000 UNIT/10 ML VIAL SUBCUT SCH (10:53)
[2018-12-26] MEDS: INSULIN REG, HUMAN 100 UNIT/ML 3 ML VIAL (PYX) SUBCUT PRN ×2 (11:00→15:59)
[2018-12-26] MEDS ORDERED: PROMETHAZINE HCL INJ 25 MG/1 ML VIAL IV ONE (11:30)
[2018-12-26 11:33] VITALS: BP 152/84
[2018-12-26 13:10] LABS: CREATINE KINASE MB 1.04 ng/mL (<4.55)
[2018-12-26 13:15] LABS: TROPONIN I < 0.012 ng/mL
[2018-12-26] MEDS ORDERED: REGADENOSON INJ 0.4 MG/5 ML DISP.SYRIN IV ONE (13:57)
--- NOTE | 2018-12-27 16:46 | PDOC DISCHARGE SUMMARY ---
General - Admit/Disc Date/PCP Admission Date/Primary Care Provider: 12/25/18 20:15 HUBERT CARTY MD Discharge Date: 12/26/18 - Discharge Diagnosis (1) Chest pain Is this a current diagnosis for this admission?: Yes (2) HTN (hypertension) Is this a current diagnosis for this admission?: Yes (3) Tobacco use disorder, severe, dependence Is this a current diagnosis for this admission?: Yes (4) Uncontrolled diabetes mellitus Is this a current diagnosis for this admission?: Yes - Additional Information Resuscitation Status: Full Code Discharge Diet: Cardiac Discharge Activity: Activity As Tolerated Prescriptions: Lisinopril [Prinivil 2.5 mg Tablet] 5 mg PO DAILY #30 tablet Nicotine [Nicoderm 21 mg/24 Hr Transderm Patch] 1 each TD DAILYP PRN #30 patch.td24 PRN Reason: Pantoprazole Sodium [Protonix [address] Tablet] 40 mg PO QAM #30 tablet. Home Medications: Atorvastatin Calcium [Lipitor 40 mg Tablet] 40 mg PO QHS 12/25/18 Lisinopril [Prinivil 2.5 mg Tablet] 5 mg PO DAILY #30 tablet 12/26/18 Nicotine [Nicoderm 21 mg/24 Hr Transderm Patch] 1 each TD DAILYP PRN #30 patch.td24 12/26/18 Pantoprazole Sodium [Protonix [address] Tablet] 40 mg PO QAM #30 tablet. 12/26/18 History of Present Illness History of Present Illness: Admitting hospitalist's H&P: ERENDIRA BECKFORD is a 53 year old female who presented to the emergency room with chest pain. The patient admits acute onset chest pain beginning the morning of admission and being present all day. She describes the pain as a constantly present, moderately severe, substernal pressure without radiation. Her chest pain was accompanied by mild dyspnea and nausea. She denies other associated signs and symptoms. She admits prior similar episodes and had a negative stress test done approximately 4 years ago. She has not identified any aggravating or ameliorating factors for her chest pain. In the emergency room the patient was found to have normal cardiac enzymes and an EKG that did not show evidence of acute myocardial ischemia or injury. She was subsequently admitted for further evaluation and treatment. Hospital Course Hospital Course: This is a 53-year-old female who presented with substernal chest pain. She was admitted to rule out ACS. Her EKGs and troponins were cycled and were unremarkable. She underwent stress testing which came back normal. She has uncontrolled DM 2. She says she is on Novolog 70/30 20 u bid at home but admits she has not been compliant with it. She says she still has inuslin supplies at home. Discussed in length about the importance of compliance with insulin, monitoring of her sugars and following up closely with her PCP. She was given a trial of PPI on discharge and will closely follow-up with her PCP. Her lisinopril was also increased to 5 mg daily based on her blood pressure logs during this course. Physical Exam Vital Signs: Temp Pulse Resp BP Pulse Ox 98.4 F 90 16 152/84 H 96 12/26/18 15:46 12/26/18 16:01 12/26/18 15:46 12/26/18 15:46 12/26/18 15:46 Intake & Output 12/26/18 12/27/18 12/28/18 06:59 06:59 06:59 Intake Total 1320 237 Balance 1320 237 Weight 128 lb 15.527 oz General appearance: PRESENT: no acute distress, well-developed, well-nourished Head exam: PRESENT: atraumatic, normocephalic Eye exam: PRESENT: conjunctiva pink, EOMI, PERRLA. ABSENT: scleral icterus Ear exam: PRESENT: normal external ear exam Mouth exam: PRESENT: moist, tongue midline Neck exam: ABSENT: carotid bruit, JVD, lymphadenopathy, thyromegaly Respiratory exam: PRESENT: clear to auscultation shana. ABSENT: rales, rhonchi, wheezes Cardiovascular exam: PRESENT: RRR. ABSENT: diastolic murmur, rubs, systolic murmur Pulses: PRESENT: normal dorsalis pedis pul GI/Abdominal exam: PRESENT: normal bowel sounds, soft. ABSENT: distended, guarding, mass, organolmegaly, rebound, tenderness Rectal exam: PRESENT: deferred Extremities exam: PRESENT: full ROM. ABSENT: calf tenderness, clubbing, pedal edema Neurological exam: PRESENT: alert, awake, oriented to person, oriented to place, oriented to time, oriented to situation, CN II-XII grossly intact. ABSENT: motor sensory deficit Results Laboratory Results: 12/26/18 05:59 08/13/19 05:59 12/25/18 12/25/18 12/25/18 18:15 18:15 23:26 Creatine Kinase 77 CK-MB (CK-2) 1.47 Troponin I < 0.012 Cancelled 12/25/18 12/25/18 12/26/18 23:26 23:26 05:59 Creatine Kinase 58 56 CK-MB (CK-2) 1.01 Troponin I < 0.012 12/26/18 12/26/18 12/26/18 05:59 12:11 12:11 Creatine Kinase 55 CK-MB (CK-2) 1.06 1.04 Troponin I < 0.012 < 0.012 Impressions: Chest X-Ray 12/25/18 00:00 IMPRESSION: NO ACUTE RADIOGRAPHIC FINDING IN THE CHEST. Qualifiers - * PATIENT BEING DISCHARGED WITH ANY OF THE FOLLOWING DIAGNOSIS: No Acute Heart Failure - Is this a Heart Failure Patient?: No LVEF < 40%?: No- if no continue to question #3 3. Anticoagulant therapy for permanect/persistent/paraoxysmal Afib or Aflutter: N/A
== END 2018-12-26 16:13 | disposition home or self-care (01) ==
LOC: ER 16:01 → EH 20:15 → INTOOBSV 20:15 → 4S 21:47
PROVIDERS: ADMIT Emergency Medicine; ATTEND Emergency Medicine
DX: R07.2 Precordial pain (principal); I10 Essential (primary) hypertension; F17.200 Nicotine dependence, unspecified, uncomplicated; E11.65 Type 2 diabetes mellitus with hyperglycemia; Z91.14 Patient's other noncompliance with medication regimen; R06.00 Dyspnea, unspecified; R11.0 Nausea; E78.5 Hyperlipidemia, unspecified; Z82.49 Family history of ischemic heart disease and other diseases of the circulatory system; Z98.51 Tubal ligation status
CPT/HCPCS: 93005 ×2; 99285; 36415 ×2; 84439; 82553 ×2; 82962 ×2; 82550 ×2; 83735; 84443; 85025; 85027; 80048; 80053; 84484 ×2; 84481; 83036; 80061; 93017; 71046; 78452; 93010 ×2; A9500; J2785; J1815 ×4; J1644 ×2; J2550; J3490 ×2; J2405; J7030; Q9969; G0378

== ENCOUNTER → 2019-02-01 | Outpatient (CLI) | payer OTHER ==
[2019-02-01 11:14] LABS: ANION GAP 12 (5-19); BLOOD UREA NITROGEN 18 mg/dL (7-20); CALCIUM 9.1 mg/dL (8.4-10.2); CARBON DIOXIDE 24 mmol/L (22-30); CHLORIDE 100 mmol/L (98-107); CHOLESTEROL 202.64 mg/dL (0-200); POTASSIUM 4.7 mmol/L (3.6-5.0); TRIGLYCERIDES 338 mg/dL (<150)
[2019-02-01 11:24] LABS: DIRECT LDL 123 mg/dL (<100)
[2019-02-01 11:31] LABS: VLDL CHOLESTEROL 67.6 mg/dL (10-31)
[2019-02-01 11:32] LABS: GLUCOSE 413 mg/dL (75-110)
[2019-02-02 10:36] LABS: CREATININE URINE 39.5 mg/dL (Not Estab.)
[2019-02-02 10:51] LABS: MICROALBUMIN URINE 434.7 ug/mL (Not Estab.)
== END ==
LOC: OD 09:32
PROVIDERS: ATTEND Family Medicine
DX: E11.40 Type 2 diabetes mellitus with diabetic neuropathy, unspecified (principal); E78.49 Other hyperlipidemia
CPT/HCPCS: 36415; 80048; 80061; 82043; 82570; 83036

== ENCOUNTER → 2019-02-15 | Outpatient (CLI) | payer OTHER ==
--- NOTE | 2019-02-15 15:21 | RADIOLOGY REPORT (SQ) ---
EXAM DESCRIPTION: CHEST PA/LATERAL COMPLETED DATE/TIME: 02/15/2019 3:03 pm REASON FOR STUDY: PRODUCTIVE COUGH COMPARISON: Two-view chest 12/25/2018, 11/27/2017, 12/04/2016 AP chest 01/03/2012 EXAM PARAMETERS: NUMBER OF VIEWS: two views TECHNIQUE: Digital Frontal and Lateral radiographic views of the chest acquired. RADIATION DOSE: NA LIMITATIONS: none FINDINGS: LUNGS AND PLEURA: Benign pleural calcification along the right anterior pleural space. Th is is unchanged from films dating back to 2017. No acute infiltrates. No pleural effusion. No pneumothorax. MEDIASTINUM AND HILAR STRUCTURES: No masses or contour abnormalities. HEART AND VASCULAR STRUCTURES: Heart normal size. No evidence for failure. BONES: No acute findings. HARDWARE: None in the chest. OTHER: No other significant finding. IMPRESSION: NO SIGNIFICANT RADIOGRAPHIC FINDING IN THE CHEST. TECHNICAL DOCUMENTATION: JOB ID: [id number] [employer]- All Rights Reserved Reading location - IP/workstation name: [email or web address]
== END ==
LOC: OD 14:32
PROVIDERS: ATTEND Family Medicine
DX: R05 Cough (principal)
CPT/HCPCS: 71046

== ENCOUNTER → 2019-11-02 | Outpatient (CLI) | payer OTHER ==
--- NOTE | 2019-11-02 12:49 | RADIOLOGY REPORT (SQ) ---
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 EXAM PARAMETERS: NUMBER OF VIEWS: Three views. TECHNIQUE: AP, lateral and oblique radiographic images acquired of the left hand. LIMITATIONS: None. FINDINGS: MINERALIZATION: Normal. BONES: No acute fracture or dislocation. No worrisome bone lesions. JOINTS: No effusions. SOFT TISSUES: No soft tissue swelling. No foreign body. OTHER: No other significant finding. IMPRESSION: NEGATIVE STUDY OF THE LEFT HAND. NO RADIOGRAPHIC EVIDENCE OF ACUTE INJURY. TECHNICAL DOCUMENTATION: JOB ID: [id number] 2010 [employer]- All Rights Reserved Reading location - IP/workstation name: [email or web address]
[2019-11-02 13:04] LABS: ANION GAP 6 (5-19); BLOOD UREA NITROGEN 24 mg/dL (7-20); CALCIUM 8.7 mg/dL (8.4-10.2); CARBON DIOXIDE 28 mmol/L (22-30); CHLORIDE 97 mmol/L (98-107); POTASSIUM 4.3 mmol/L (3.6-5.0)
[2019-11-02 13:34] LABS: GLUCOSE 415 mg/dL (75-110)
[2019-11-03 11:37] LABS: CREATININE URINE 38.2 mg/dL (Not Estab.)
[2019-11-03 12:07] LABS: MICROALBUMIN URINE 1363.8 ug/mL (Not Estab.)
== END ==
LOC: OD 10:59
PROVIDERS: ATTEND Family Medicine
DX: E11.40 Type 2 diabetes mellitus with diabetic neuropathy, unspecified (principal); S69.92XD Unspecified injury of left wrist, hand and finger(s), subsequent encounter; X58.XXXD Exposure to other specified factors, subsequent encounter
CPT/HCPCS: 36415; 80048; 82043; 82570; 83036

== ENCOUNTER → 2020-01-07 | Outpatient (CLI) | payer OTHER ==
--- NOTE | 2020-01-07 12:02 | RADIOLOGY REPORT (SQ) ---
EXAM DESCRIPTION: KNEE RIGHT 2 VIEWS IMAGES COMPLETED DATE/TIME: 01/07/2020 11:49 am REASON FOR STUDY: PAIN IN RIGHT KNEE M25.561 PAIN IN RIGHT KNEE COMPARISON: None. NUMBER OF VIEWS: Two views. TECHNIQUE: AP and lateral radiographic images acquired of the right knee. LIMITATIONS: None. FINDINGS: MINERALIZATION: Normal. BONES: No acute fracture or dislocation. No worrisome bone lesions. JOINT: No effusion. SOFT TISSUES: No soft tissue swelling. No radio-opaque foreign body. OTHER: No other significant finding. IMPRESSION: 1. No acute osseous findings. TECHNICAL DOCUMENTATION: JOB ID: [id number] 2010 [employer]- All Rights Reserved Reading location - IP/workstation name: [email or web address]
== END ==
LOC: OD 10:59
PROVIDERS: ATTEND Family Medicine
DX: M25.561 Pain in right knee (principal)